=== PATIENT | male | born 1965 | race Caucasian/White ===

== ENCOUNTER 2017-01-23 09:54 | Outpatient (CLI) | payer MEDICAID | END 2017-01-23 09:55 | disposition EMS.NT | LOC: EMS 09:54 | PROVIDERS: ATTEND Surgery | DX: R04.0 Epistaxis (principal) ==

== ENCOUNTER 2017-01-23 14:10 | Emergency (ER) | payer MEDICAID ==
[2017-01-23] MEDS ORDERED: LIDOCAINE-EPINEPH-TETRACAINE 3 ML SYRINGE TOP ONE (15:17)
[2017-01-23] MEDS ORDERED: ONDANSETRON ODT 4 MG TABLET TL STA (15:22)
[2017-01-23] MEDS ORDERED: ONDANSETRON ODT 4 MG TABLET ONE (15:24)
--- NOTE | 2017-01-23 15:44 | ED Physician Documentation ---
PD HPI HEENT - Stated complaint Stated Complaint: NOSE BLEED - Chief complaint Chief Complaint: Heent - History obtained from History obtained from: Patient - History of Present Illness Timing - onset: Enter time (0600), Today Timing - duration: Hours Timing - details: Gradual onset, Still present Location: Nose Worsens: Everything Associated symptoms: No: Fever, Congestion, Rhinorrhea Similar symptoms before: Diagnosis (septal epistaxis) Recently seen: Not recently seen - Additional information Additional information: 51 y/o male developed a nose bleed this morning after blowing his nose, and he is not able to get control of the bleeding. He is nauseated from the blood he has swallowed. Review of Systems Constitutional: denies: Fever Eyes: denies: Decreased vision Ears: denies: Ear pain Nose: reports: Epistaxis Throat: denies: Sore throat Respiratory: denies: Cough GI: reports: Nausea. denies: Vomiting PD PAST MEDICAL HISTORY - Past Medical History Past Medical History: Yes Cardiovascular: Hypertension Respiratory: None Endocrine/Autoimmune: None GI: Esophageal varices, Ulcers, Cirrhosis : None HEENT: None Psych: None Musculoskeletal: Osteoarthritis - Past Surgical History Past Surgical History: Yes General: Colonoscopy, EGD - Present Medications Home Medications: Ambulatory Orders Medication Instructions Recorded Confirmed Propranolol [Inderal] 40 mg PO BID 05/08/16 01/23/17 - Allergies Allergies/Adverse Reactions: Allergies Allergy/AdvReac Type Severity Reaction Status Date / Time Penicillins Allergy Anaphylaxis Verified 01/23/17 14:21 - Social History Does the pt smoke?: Yes Smoking Status: Current every day smoker Does the pt drink ETOH?: Yes Does the pt have substance abuse?: No - Immunizations Immunizations are current?: Yes - POLST Patient has POLST: No PD ED PE NORMAL - Vitals Vital signs reviewed: Yes (normal ) - General General: Alert and oriented X 3, No acute distress, Well developed/nourished, Other (stong odor of alcohol noted. ) - HEENT HEENT: Atraumatic, PERRL, EOMI, Other (There is bleeding from the left nares and this looks like it is coming from the anterior septum. ) - Neck Neck: Supple, no meningeal sign, No bony TTP - Respiratory Respiratory: No respiratory distress - Derm Derm: Normal color, Warm and dry, No rash - Extremities Extremities: No deformity, No edema - Neuro Neuro: No motor deficit, No sensory deficit, Normal speech - Psych Psych: Normal mood, Normal affect Results - Vitals Vitals: Vital Signs - 24 hr 01/23/17 01/23/17 14:15 17:03 Temperature 36.1 C L 36.8 C Heart Rate 72 73 Respiratory 18 18 Rate Blood Pressure 138/89 H 116/76 O2 Saturation 100 97 Oxygen O2 Source Room air PD MEDICAL DECISION MAKING - ED course Complexity details: reviewed old records, considered differential, d/w patient, d/w family ED course: 51 y/o male with acute anterior epistaxis does not respond to initial trial of AgNO3 and 2 separate rhino rockets and finally we are able to get control of the bleeding with afrin and a clamp. He was administered zofran for nausea of the swallowed blood. He continues to have some oozing and he has a known thrombocytopenia from alcohol consumption. He is given the clamp and the afrin and leaves with the clamp in place without bleeding . Departure - Departure Disposition: 01 Home, Self Care Clinical Impression: Epistaxis Condition: Stable Instructions: ED Nosebleed Follow-Up: Alma Lopes ARNP [Primary Care Provider] - Discharge Date/Time: 01/23/17 17:09
[2017-01-23] MEDS ORDERED: OXYMETAZOLINE NASAL SPRAY NAS ONE (16:17)
[2017-01-23 17:05] VITALS: BP 116/76
== END 2017-01-23 17:09 | disposition home or self-care (01) ==
LOC: ED 14:10
DX: R04.0 Epistaxis (principal); R11.0 Nausea; D69.6 Thrombocytopenia, unspecified; I10 Essential (primary) hypertension; F17.200 Nicotine dependence, unspecified, uncomplicated
CPT/HCPCS: 30903; 99283; A9270; Q0162

== ENCOUNTER 2017-04-25 08:52 | Outpatient (CLI) | payer MEDICAID | END 2017-04-25 08:53 | disposition EMS.NT | LOC: EMS 08:52 | PROVIDERS: ATTEND Surgery | DX: R58 Hemorrhage, not elsewhere classified (principal) ==

== ENCOUNTER 2017-04-25 15:47 | Outpatient (CLI) | payer MEDICAID | END 2017-04-25 15:48 | disposition critical access hospital (66) | LOC: EMS 15:47 | PROVIDERS: ATTEND Surgery | DX: R58 Hemorrhage, not elsewhere classified (principal) | CPT/HCPCS: A0425; A0429 ==

== ENCOUNTER 2017-04-25 16:24 | Emergency (ER) | payer MEDICAID ==
[2017-04-25 16:38] VITALS: BP 120/80
== END 2017-04-25 17:19 | disposition left against medical advice (07) ==
LOC: ED 16:24
DX: R58 Hemorrhage, not elsewhere classified (principal); L91.8 Other hypertrophic disorders of the skin; Z53.21 Procedure and treatment not carried out due to patient leaving prior to being seen by health care provider
CPT/HCPCS: 99281

== ENCOUNTER 2017-05-14 11:19 | Outpatient (CLI) | payer MEDICAID ==
[2017-05-14 18:23] LABS: HCT - HEMATOCRIT 34.6 % (42.0-52.0); HGB - HEMOGLOBIN 11.5 g/dL (14.0-18.0); MEAN CORPUSCULAR HEMOGLOBIN 34.6 pg (27.0-31.0); MEAN CORPUSCULAR HGB CONC 33.4 g/dL (32.0-36.0); MEAN CORPUSCULAR VOLUME 103.7 fL (80.0-94.0); MEAN PLATELET VOLUME 9.8 fL (7.4-11.4); RED BLOOD COUNT 3.34 10^6/uL (4.70-6.10); RED CELL DISTRIBUTION WIDTH 13.9 % (12.0-15.0); WHITE BLOOD COUNT 7.1 x10^3/uL (4.8-10.8)
[2017-05-14 18:38] LABS: ALBUMIN/GLOBULIN RATIO 0.8 (1.0-2.2); BILIRUBIN,TOTAL 1.5 mg/dL (0.2-1.0); CALCIUM 8.5 mg/dL (8.5-10.3); CREATININE 0.7 mg/dL (0.6-1.2); TOTAL PROTEIN 8.5 g/dL (6.7-8.2)
[2017-05-14 19:09] LABS: FOLATE 7.38 ng/mL (5.90 - >24.8)
== END 2017-05-14 11:20 | disposition home or self-care (01) ==
LOC: LAB.F 11:19
PROVIDERS: ATTEND Nurse Practitioner Family
DX: K70.30 Alcoholic cirrhosis of liver without ascites (principal); F10.20 Alcohol dependence, uncomplicated; D69.6 Thrombocytopenia, unspecified
CPT/HCPCS: 36415; 80053; 82140; 82607; 82746; 85025; 85610

== ENCOUNTER 2017-05-15 10:57 | Outpatient (CLI) | payer MEDICAID | END 2017-05-15 10:58 | disposition home or self-care (01) | LOC: LAB 10:57 | PROVIDERS: ATTEND Nurse Practitioner Family | DX: K70.30 Alcoholic cirrhosis of liver without ascites (principal) | CPT/HCPCS: 36415; 82140 ==

== ENCOUNTER 2017-05-27 09:28 | Outpatient (CLI) | payer MEDICAID ==
--- NOTE | 2017-05-27 11:42 | Ultrasound Report ---
RIGHT UPPER QUADRANT ULTRASOUND: 05/27/2017 CLINICAL INDICATION: Alcoholic cirrhosis. TECHNIQUE: Real-time scanning was performed with cash application representative static images obtained. FINDINGS: The liver measures 20 cm. Hepatic echotexture is diffusely heterogeneous. There is reversa l of flow in the portal vein, compatible with portal hypertension. The common bile duct measures 5 mm . No focal hepatic lesion is seen. The gallbladder is distended, measuring 12.7 cm in length, and the re is either an avascular mass or a large focus of adherent tumefact of sludge in the fundus of the g allbladder, measuring 2.4 x 2.2 x 1.9 cm. No wall thickening or cholelithiasis is seen. The right kid edward measures 12 cm, and appears unremarkable. No free fluid is present. IMPRESSION: CIRRHOSIS, WITH REVERSAL OF FLOW IN THE PORTAL VEIN. LARGE FOCUS OF ADHERENT TUMEFACT OF SLUDGE VERSUS MASS IN THE FUNDUS OF THE GALLBLADDER, MEASURING 2.4 CM. NO EVIDENCE OF BILIARY OBSTRU CTION. JOB #: [id number] EXT JOB #:[id number]
== END 2017-05-27 09:29 | disposition home or self-care (01) ==
LOC: DI 09:28
PROVIDERS: ATTEND Physician Assistant
DX: K70.31 Alcoholic cirrhosis of liver with ascites (principal)
CPT/HCPCS: 76705

== ENCOUNTER 2017-06-28 12:28 | Outpatient (CLI) | payer MEDICAID | END 2017-06-28 12:29 | disposition short-term general hospital (02) | LOC: EMS 12:28 | PROVIDERS: ATTEND Surgery | DX: K92.0 Hematemesis (principal); K92.1 Melena | CPT/HCPCS: A0425; A0429 ==

== ENCOUNTER 2017-07-10 07:09 | Outpatient (CLI) | payer MEDICAID ==
[2017-07-10 10:57] LABS: BASOPHILS # (AUTO) 0.1 10^3/uL (0.0-0.1); BASOPHILS % (AUTO) 1.3 %; EOSINOPHILS # (AUTO) 0.1 10^3/uL (0.0-0.7); EOSINOPHILS % (AUTO) 0.9 %; HCT - HEMATOCRIT 28.4 % (42.0-52.0); HGB - HEMOGLOBIN 9.6 g/dL (14.0-18.0); LYMPHOCYTES # (AUTO) 1.9 10^3/uL (1.5-3.5); LYMPHOCYTES % (AUTO) 19.6 %; MEAN CORPUSCULAR HEMOGLOBIN 34.1 pg (27.0-31.0); MEAN CORPUSCULAR VOLUME 100.3 fL (80.0-94.0); MEAN PLATELET VOLUME 11.5 fL (7.4-11.4); MONOCYTES # (AUTO) 1.1 10^3/uL (0.0-1.0); MONOCYTES % (AUTO) 11.3 %; NEUTROPHILS # (AUTO) 6.3 10^3/uL (1.5-6.6); NEUTROPHILS % (AUTO) 66.9 %; NUCLEATED RED BLOOD CELLS AUTO 0.1 /100WBC; RED BLOOD COUNT 2.83 10^6/uL (4.70-6.10); RED CELL DISTRIBUTION WIDTH 16.6 % (12.0-15.0); UNCORRECTED WHITE BLOOD COUNT 9.5 x10^3/uL; WHITE BLOOD COUNT 9.5 x10^3/uL (4.8-10.8)
[2017-07-10 11:03] LABS: INR 1.6 (0.8-1.2)
[2017-07-10 11:04] LABS: ALBUMIN/GLOBULIN RATIO 0.7 (1.0-2.2); BILIRUBIN,TOTAL 3.5 mg/dL (0.2-1.0); CALCIUM 8.4 mg/dL (8.5-10.3); CREATININE 0.8 mg/dL (0.6-1.2); MAGNESIUM 1.2 mg/dL (1.7-2.8); POTASSIUM 3.7 mmol/L (3.5-5.0); TOTAL PROTEIN 7.4 g/dL (6.7-8.2)
== END 2017-07-10 07:10 | disposition home or self-care (01) ==
LOC: LAB.F 07:09
PROVIDERS: ATTEND Nurse Practitioner Family
DX: K70.30 Alcoholic cirrhosis of liver without ascites (principal); E87.6 Hypokalemia; E83.42 Hypomagnesemia; K92.2 Gastrointestinal hemorrhage, unspecified; D69.6 Thrombocytopenia, unspecified
CPT/HCPCS: 36415; 80053; 83735; 85025; 85610

== ENCOUNTER 2017-08-31 09:10 | Outpatient (CLI) | payer MEDICAID | END 2017-08-31 09:11 | disposition home or self-care (01) | LOC: DI 09:10 | PROVIDERS: ATTEND Internal Medicine | DX: Z53.9 Procedure and treatment not carried out, unspecified reason (principal) ==

== ENCOUNTER 2017-09-12 09:44 | Outpatient (CLI) | payer MEDICAID ==
[2017-09-12] MEDS ORDERED: GADOBUTROL 10 MMOL/10 ML VIAL ONE (10:07)
[2017-09-12] MEDS ORDERED: GADOBUTROL 10 MMOL/10 ML VIAL IVP ONE (11:29)
--- NOTE | 2017-09-12 16:45 | MRI Report ---
EXAM: MR ABDOMEN WITH AND WITHOUT CONTRAST (MR LIVER) EXAM DATE: 09/12/2017 11:50 AM. CLINICAL HISTORY: GALLBLADDER MASS. COMPARISON: None. TECHNIQUE: Multiplanar breath-hold T1, T2, and DWI sequences obtained through the abdomen on an [facility] fariha. Images obtained before and after administration of 9 mL Gadavist intravenous contrast. Multiph ase postcontrast images obtained of the liver and abdomen. FINDINGS: Lung Bases: Unremarkable. Liver: Diffuse fatty liver infiltration. No suspicious liver mass. Mildly nodular liver contour. Gallbladder: Distended gallbladder. No evidence for wall thickening, mass or stone. Patient motion ar tifact. Normal 6 mm CBD. No choledocholithiasis. Pancreas: The pancreas appears normal with no mass or ductal dilatation. Normal 2 mm pancreatic duct. Spleen: Moderately enlarged spleen measuring 15 cm, 357 cc. No focal splenic lesion evident. Kidneys and Adrenals: The kidneys appear normal with no mass or hydronephrosis. The adrenals appear n ormal. Bowel: The small bowel and colon appear normal with no inflammation or obstruction. Trace right upper quadrant free fluid. Retroperitoneum: The retroperitoneal structures appear normal with no mass or lymphadenopathy. IMPRESSION: 1. Distended gallbladder. No MR evidence for mass. 2. Fatty liver. Nodular liver contour, possible cirrhosis. 3. Mild splenomegaly. 4. Trace right upper quadrant free fluid/ascites. If prior outside ultrasound exam becomes available, comparison may be made. [facility] Referring Provider Line: [phone] SITE ID: [id number]
== END 2017-09-12 09:45 | disposition home or self-care (01) ==
LOC: DI 09:44
PROVIDERS: ATTEND Internal Medicine
DX: K82.8 Other specified diseases of gallbladder (principal); K76.0 Fatty (change of) liver, not elsewhere classified; R16.1 Splenomegaly, not elsewhere classified
CPT/HCPCS: 74183; A9585

== ENCOUNTER 2017-11-04 22:53 | Outpatient (CLI) | payer MEDICAID | END 2017-11-04 22:54 | disposition EMS.NT | LOC: EMS 22:53 | PROVIDERS: ATTEND Surgery | DX: R58 Hemorrhage, not elsewhere classified (principal) ==

== ENCOUNTER 2018-01-14 10:12 | Outpatient (CLI) | payer MEDICAID ==
--- NOTE | 2018-01-14 15:18 | XRAY Report ---
THREE VIEW RIGHT FOOT: 01/14/2018 CLINICAL INDICATION: Pain. FINDINGS: AP, lateral, oblique views of the right foot demonstrate mild osteoarthritis of the first metatarsophalangeal joint. There is no evidence of acute fracture or dislocation. No radiopaque foreign body is seen in the soft tissues. IMPRESSION: MILD OSTEOARTHRITIS OF THE FIRST METATARSOPHALANGEAL JOINT. TD: 01/14/2018 15:10
== END 2018-01-14 10:13 | disposition home or self-care (01) ==
LOC: DI.S 10:12
PROVIDERS: ATTEND Nurse Practitioner Family
DX: M79.671 Pain in right foot (principal); M19.071 Primary osteoarthritis, right ankle and foot

== ENCOUNTER 2018-02-10 09:01 | Outpatient (CLI) | END 2018-02-10 09:02 | disposition home or self-care (01) | CPT/HCPCS: 73720; A9585 ==

== ENCOUNTER 2018-05-20 07:03 | Outpatient (CLI) | payer MEDICAID ==
[2018-05-20 11:09] LABS: BASOPHILS # (AUTO) 0.1 10^3/uL (0.0-0.1); BASOPHILS % (AUTO) 1.4 %; EOSINOPHILS # (AUTO) 0.1 10^3/uL (0.0-0.7); EOSINOPHILS % (AUTO) 1.6 %; HGB - HEMOGLOBIN 11.8 g/dL (14.0-18.0); LYMPHOCYTES # (AUTO) 1.7 10^3/uL (1.5-3.5); LYMPHOCYTES % (AUTO) 21.7 %; MEAN CORPUSCULAR HEMOGLOBIN 35.7 pg (27.0-31.0); MEAN CORPUSCULAR VOLUME 101.9 fL (80.0-94.0); MEAN PLATELET VOLUME 11.4 fL (7.4-11.4); MONOCYTES # (AUTO) 1.1 10^3/uL (0.0-1.0); MONOCYTES % (AUTO) 14.3 %; NEUTROPHILS # (AUTO) 4.8 10^3/uL (1.5-6.6); PLT - PLATELET COUNT 85 10^3/uL (130-450); RED BLOOD COUNT 3.29 10^6/uL (4.70-6.10); RED CELL DISTRIBUTION WIDTH 14.8 % (12.0-15.0); WHITE BLOOD COUNT 7.8 x10^3/uL (4.8-10.8)
[2018-05-20 11:55] LABS: PLATELET ESTIMATE, MANUAL DECREASED (<130,000) (NORMAL); PLATELET MORPHOLOGY RARE GIANT PLATELETS (NORMAL)
[2018-05-20 11:56] LABS: DIFFERENTIAL COMMENT MANUAL=AUTO DIFF
[2018-05-20 12:38] LABS: ALBUMIN 3.6 g/dL (3.2-5.5); ALBUMIN/GLOBULIN RATIO 0.8 (1.0-2.2); BILIRUBIN,TOTAL 2.9 mg/dL (0.2-1.0); CALCIUM 8.8 mg/dL (8.5-10.3); CREATININE 0.9 mg/dL (0.6-1.2); TOTAL PROTEIN 8.2 g/dL (6.7-8.2)
== END 2018-05-20 07:04 | disposition home or self-care (01) ==
LOC: LAB.F 07:03
PROVIDERS: ATTEND Nurse Practitioner Family
DX: K70.30 Alcoholic cirrhosis of liver without ascites (principal); D69.6 Thrombocytopenia, unspecified; E80.6 Other disorders of bilirubin metabolism; F10.10 Alcohol abuse, uncomplicated
CPT/HCPCS: 36415; 80053; 85025; 85610

== ENCOUNTER 2018-10-16 01:40 | Outpatient (CLI) | payer MEDICAID | END 2018-10-16 01:41 | disposition critical access hospital (66) | LOC: EMS 01:40 | PROVIDERS: ATTEND Surgery | DX: R04.0 Epistaxis (principal) ==

== ENCOUNTER 2018-10-16 02:15 | Emergency (ER) | payer MEDICAID ==
--- NOTE | 2018-10-16 03:32 | ED Physician Documentation ---
PD HPI HEENT - Stated complaint Stated Complaint: NOSE BLEED - Chief complaint Chief Complaint: Heent - History obtained from History obtained from: Patient - History of Present Illness Timing - onset: How many days ago (4-5) Timing - duration: Days Timing - details: Gradual onset, Waxing and waning Pain level max: 0 Pain level now: 0 Location: Nose Improves: Nothing Worsens: Other (no exacerbating factors) Associated symptoms: No: Fever, Congestion, Rhinorrhea, Headache, Cough Similar symptoms before: Other (T+R from this ED 2 years ago for same problem) Recently seen: Not recently seen - Additional information Additional information: c/o atraumatic epistaxis; initially just right nare but now both nares. BIBA Review of Systems Constitutional: denies: Fever Nose: reports: Epistaxis. denies: Rhinorrhea / runny nose, Congestion, Sinus p ressure / pain Throat: denies: Sore throat GI: denies: Vomiting, Hematemesis Endocrine: denies: Easy bruising / bleeding PD PAST MEDICAL HISTORY - Past Medical History Past Medical History: Yes Cardiovascular: Hypertension Respiratory: None Endocrine/Autoimmune: None GI: Esophageal varices, Ulcers, Cirrhosis : None HEENT: None Psych: None Musculoskeletal: Osteoarthritis Other Past Medical History: TBI - Past Surgical History Past Surgical History: Yes General: Colonoscopy, EGD - Present Medications Home Medications: Ambulatory Orders Medication Instructions Recorded Confirmed Propranolol [Inderal] 40 mg PO BID 05/08/16 04/25/17 Cyclobenzaprine [Flexeril] 10 mg PO 10/16/18 hydrOXYzine PAMOATE [Vistaril] 25 mg PO 10/16/18 - Allergies Allergies/Adverse Reactions: Allergies Allergy/AdvReac Type Severity Reaction Status Date / Time Penicillins Allergy Anaphylaxis Verified 10/16/18 02:28 - Social History Does the pt smoke?: Yes Smoking Status: Current every day smoker Does the pt drink ETOH?: Yes Does the pt have substance abuse?: No - Immunizations Immunizations are current?: Yes - POLST Patient has POLST: No PD ED PE NORMAL - Vitals Vital signs reviewed: Yes - General General: Alert and oriented X 3, No acute distress, Well developed/nourished, Other (strong odor s/o alcohol on breath) - HEENT HEENT: Moist mucous membranes, Pharynx benign PD ED PE EXPANDED - HEENT HEENT: Other (scant dried, crusted blood right nare on anterior septum. there is larger amount of dried, clotted blood left nare on anterior septum. no active bleeding either nare) Results - Vitals Vitals: Vital Signs - 24 hr 10/16/18 10/16/18 02:15 06:14 Temperature 36.1 C L 36.4 C L Heart Rate 68 80 Respiratory 17 18 Rate Blood Pressure 141/68 H 133/106 H O2 Saturation 97 97 Oxygen O2 Source Room air Procedures - Epistaxis Site: Left, Anterior Preparation: Lidocaine Treatment: Silver Nitrate (unsuccessful), Anterior rhinorocket (good hemostasis) Other: Observed - no bleeding, Pt tolerated well PD MEDICAL DECISION MAKING - ED course Complexity details: reviewed old records, re-evaluated patient, considered differential, d/w patient Departure - Departure Disposition: 01 Home, Self Care Clinical Impression: Epistaxis Condition: Good Instructions: ED Nosebleed Follow-Up: Chaya Morales ARNP [Primary Care Provider] - Comments: Follow up with your doctor within 2-3 days for removal of the packing. Discharge Date/Time: 10/16/18 07:57
[2018-10-16] MEDS ORDERED: OXYMETAZOLINE NASAL SPRAY NAS STA (03:53)
[2018-10-16] MEDS ORDERED: LIDOCAINE VISCOUS 2% 15 ML UDC MM STA (03:53)
[2018-10-16] MEDS ORDERED: diazePAM 5 MG TABLET PO STA (06:05)
[2018-10-16] MEDS ORDERED: PROPRANOLOL 10 MG TABLET PO STA (06:05)
[2018-10-16 06:17] VITALS: BP 133/106
== END 2018-10-16 07:57 | disposition home or self-care (01) ==
LOC: ED 02:15
DX: R04.0 Epistaxis (principal); I10 Essential (primary) hypertension; F17.200 Nicotine dependence, unspecified, uncomplicated; Z87.820 Personal history of traumatic brain injury
CPT/HCPCS: 30901; 99282; 99283; A9270

== ENCOUNTER 2018-10-22 10:27 | Emergency (ER) | payer MEDICAID ==
[2018-10-22 11:25] LABS: BASOPHILS # (AUTO) 0.1 10^3/uL (0.0-0.1); BASOPHILS % (AUTO) 1.2 %; EOSINOPHILS # (AUTO) 0.1 10^3/uL (0.0-0.7); EOSINOPHILS % (AUTO) 0.9 %; HGB - HEMOGLOBIN 10.7 g/dL (14.0-18.0); LYMPHOCYTES # (AUTO) 1.7 10^3/uL (1.5-3.5); LYMPHOCYTES % (AUTO) 22.1 %; MEAN CORPUSCULAR HEMOGLOBIN 35.3 pg (27.0-31.0); MEAN CORPUSCULAR HGB CONC 34.5 g/dL (32.0-36.0); MEAN CORPUSCULAR VOLUME 102.3 fL (80.0-94.0); MONOCYTES # (AUTO) 1.2 10^3/uL (0.0-1.0); MONOCYTES % (AUTO) 15.4 %; NEUTROPHILS # (AUTO) 4.5 10^3/uL (1.5-6.6); NEUTROPHILS % (AUTO) 60.4 %; PLT - PLATELET COUNT 46 10^3/uL (130-450); RED BLOOD COUNT 3.05 10^6/uL (4.70-6.10); RED CELL DISTRIBUTION WIDTH 14.8 % (12.0-15.0); WHITE BLOOD COUNT 7.5 x10^3/uL (4.8-10.8)
[2018-10-22 11:38] LABS: ALBUMIN 3.6 g/dL (3.2-5.5); ALBUMIN/GLOBULIN RATIO 0.8 (1.0-2.2); BILIRUBIN,TOTAL 3.1 mg/dL (0.2-1.0); CALCIUM 8.6 mg/dL (8.5-10.3); CREATININE 1.6 mg/dL (0.6-1.2); TOTAL PROTEIN 8.3 g/dL (6.7-8.2)
--- NOTE | 2018-10-22 12:51 | CT Report ---
Reason: dizzy, blurred vision which has resolved Procedure Date: 10/22/2018 Accession Number: [id number] / [id number] Procedure: CT - HEAD WO CPT Code: FULL RESULT: EXAM: CT HEAD EXAM DATE: 10/22/2018 12:29 PM. CLINICAL HISTORY: Dizzy, blurred vision which has resolved. COMPARISON: None. TECHNIQUE: Multiaxial CT images were obtained from the foramen magnum to the vertex. Reformats: Sagittal and coronal. IV contrast: None. In accordance with CT protocol optimization, one or more of the following dose reduction techniques were utilized for this exam: automated exposure control, adjustment of mA and/or KV based on patient size, or use of iterative reconstructive technique. FINDINGS: Parenchyma: No intraparenchymal hemorrhage. No evidence of mass, midline shift. Reid-white differentiation is distinct. Extraaxial Spaces: In the left posterior fossa is a 2.3 x 2.1 cm CSF density space possibly arachnoid cyst. No subdural or epidural collections identified. Ventricles: Normal in size and position. Sinuses and Orbits: Imaged paranasal sinuses, orbits, and mastoids show no significant abnormality. Bones: No evidence of fracture or calvarial defect. Other: None. IMPRESSION: No acute intracranial abnormality is detected. CSF density space in the posterior fossa is felt to be a chronic finding. [facility]
[2018-10-22 13:01] LABS: BILIRUBIN,URINE NEGATIVE (NEGATIVE); GLUCOSE, URINE (UA) NEGATIVE (NEGATIVE); KETONES,URINE (UA) TRACE mg/dL (NEGATIVE); LEUKOCYTE ESTERASE, URINE NEGATIVE (NEGATIVE); NITRITE,URINE NEGATIVE (NEGATIVE); OCCULT BLOOD,URINE NEGATIVE (NEGATIVE); PROTEIN,URINE NEGATIVE (NEGATIVE); UROBILINOGEN,URINE 1 (NORMAL) E.U./dL (NORMAL)
[2018-10-22 13:06] LABS: CLARITY,URINE CLEAR (CLEAR)
--- NOTE | 2018-10-22 13:41 | ED Physician Documentation ---
History of Present Illness - Stated complaint Stated Complaint: VISION CHANGES/SWEATING - Chief complaint Chief Complaint: General - Additonal information Additional information: 53-year-old male presents the emergency department with an episode of dizziness and blurred vision. The patient was a passenger in a car when he became lightheaded and his vision was blurry bilaterally. The episode was brief and resolved spontaneously. The patient denied headache, focal motor weakness, vision loss, facial abnormality, speech changes, confusion, headache or neck pain. Presently, the patient reports being at his baseline. The patient denies any ocular pain, floaters, flashing of light or unilateral vision changes. The patient denies chest pain, shortness of breath, abdominal pain. No specific triggering symptoms. No other associated symptoms. Review of Systems Constitutional: denies: Fever, Fatigue Eyes: denies: Loss of vision, Decreased vision, Photophobia, Discharge, Irritation Ears: denies: Ear pain Nose: denies: Congestion Throat: denies: Sore throat Cardiac: denies: Chest pain / pressure Respiratory: denies: Dyspnea GI: denies: Abdominal Pain : denies: Dysuria Skin: denies: Rash Neurologic: denies: Generalized weakness, Focal weakness, Numbness, Difficulty speaking, Near syncope, Syncope, Seizure, Altered mental status PD PAST MEDICAL HISTORY - Past Medical History Cardiovascular: Hypertension Respiratory: None Endocrine/Autoimmune: None GI: Esophageal varices, Ulcers, Cirrhosis : None HEENT: None Psych: None Musculoskeletal: Osteoarthritis - Past Surgical History Past Surgical History: Yes General: Colonoscopy, EGD - Present Medications Home Medications: Ambulatory Orders Medication Instructions Recorded Confirmed Propranolol [Inderal] 40 mg PO BID 05/08/16 04/25/17 Cyclobenzaprine [Flexeril] 10 mg PO 10/16/18 hydrOXYzine PAMOATE [Vistaril] 25 mg PO 10/16/18 - Allergies Allergies/Adverse Reactions: Allergies Allergy/AdvReac Type Severity Reaction Status Date / Time Penicillins Allergy Anaphylaxis Verified 10/16/18 02:28 - Social History Does the pt smoke?: Yes Smoking Status: Current every day smoker Does the pt drink ETOH?: Yes Does the pt have substance abuse?: No - Immunizations Immunizations are current?: Yes - POLST Patient has POLST: No PD ED PE NORMAL - General General: Alert and oriented X 3, No acute distress - HEENT HEENT: Atraumatic, PERRL, EOMI, Ears normal, Pharynx benign - Cardiac Cardiac: RRR, Strong equal pulses - Respiratory Respiratory: No respiratory distress - Abdomen Abdomen: Soft, Non tender - Derm Derm: Normal color - Extremities Extremities: No deformity, Normal ROM s pain, No edema - Neuro Neuro: Alert and oriented X 3, 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, No motor deficit, No sensory deficit, Normal speech, Other (normal gait) - Psych Psych: Normal mood Results - Vitals Vitals: Vital Signs - 24 hr 10/22/18 10/22/18 10/22/18 10:33 10:55 12:25 Temperature 35.6 C L Heart Rate 62 69 84 Respiratory 14 18 18 Rate Blood Pressure 96/44 L 105/60 122/84 H O2 Saturation 97 99 97 Oxygen O2 Source Room air - EKG (time done) 11:21 Rate: Rate (enter#) Rhythm: NSR Intervals: Normal DE, QRS normal QRS: Normal Ischemia: Normal ST segments - Labs Labs: Laboratory Tests 10/22/18 10/22/18 10/22/18 11:16 11:16 11:16 WBC 7.5 RBC 3.05 L Hgb 10.7 L Hct 31.2 L MCV 102.3 H MCH 35.3 H MCHC 34.5 RDW 14.8 Plt Count 46 L MPV 10.0 Neut # (Auto) 4.5 Lymph # (Auto) 1.7 Gilchrist # (Auto) 1.2 H Eos # (Auto) 0.1 Baso # (Auto) 0.1 Absolute Nucleated RBC 0.02 Nucleated RBC % 0.3 Sodium 132 L Potassium 3.8 Chloride 97 L Carbon Dioxide 22 Anion Gap 13.0 BUN 19 Creatinine 1.6 H Estimated GFR (MDRD) 45 L Glucose 155 H Calcium 8.6 Total Bilirubin 3.1 H AST 92 H ALT 33 Alkaline Phosphatase 111 Troponin I < 0.04 Total Protein 8.3 H Albumin 3.6 Globulin 4.7 H Albumin/Globulin Ratio 0.8 L Lipase 69 H Urine Color Urine Clarity Urine pH Ur Specific Honor Urine Protein Urine Glucose (UA) Urine Ketones Urine Occult Blood Urine Nitrite Urine Bilirubin Urine Urobilinogen Ur Leukocyte Esterase Ur Microscopic Review Urine Culture Comments 10/22/18 12:24 WBC RBC Hgb Hct MCV MCH MCHC RDW Plt Count MPV Neut # (Auto) Lymph # (Auto) Gilchrist # (Auto) Eos # (Auto) Baso # (Auto) Absolute Nucleated RBC Nucleated RBC % Sodium Potassium Chloride Carbon Dioxide Anion Gap BUN Creatinine Estimated GFR (MDRD) Glucose Calcium Total Bilirubin AST ALT Alkaline Phosphatase Troponin I Total Protein Albumin Globulin Albumin/Globulin Ratio Lipase Urine Color YELLOW Urine Clarity CLEAR Urine pH 6.0 Ur Specific Honor <=1.005 Urine Protein NEGATIVE Urine Glucose (UA) NEGATIVE Urine Ketones TRACE Urine Occult Blood NEGATIVE Urine Nitrite NEGATIVE Urine Bilirubin NEGATIVE Urine Urobilinogen 1 (NORMAL) Ur Leukocyte Esterase NEGATIVE Ur Microscopic Review NOT INDICATED Urine Culture Comments NOT INDICATED - Rads (name of study) CT head Radiology: Final report received, See rad report (IMPRESSION: No acute intracranial abnormality is detected. CSF density space in the posterior fossa is felt to be a chronic finding. ) PD MEDICAL DECISION MAKING - ED course ED course: The patient's episode was brief and the patient currently is at his baseline. The patient's workup does not reveal a clear source for his symptoms. The patient's workup does reveal several nonacute abnormalities, presently the patient appears appropriate for discharge and further workup and evaluation as an outpatient. I discussed with the patient the findings and advised further evaluation with primary care. The patient understands and agrees. I discussed warning signs and recommended returning to the emergency department for any worsening or any concerns Departure - Departure Disposition: 01 Home, Self Care Clinical Impression: Dizziness, Blurry vision, Abnormal CT scan, head, Renal insufficiency Anemia Qualifiers: Anemia type: unspecified type Qualified Code(s): D64.9 - Anemia, unspecified Condition: Good Instructions: ED Blurred Vision, ED Dizziness [facility] Comments: Please follow-up with your primary care physician this coming week for recheck. Please ask your primary care to order an outpatient MRI of your brain to further assess the abnormality seen on CT scan. Please ask your primary care to follow your low hemoglobin/anemia and your kidney function. Please return to the emergency department for any worsening or any concerns Forms: Activity restrictions
[2018-10-22 14:15] VITALS: BP 122/78
== END 2018-10-22 14:14 | disposition home or self-care (01) ==
LOC: ED 10:27
DX: R42 Dizziness and giddiness (principal); H53.8 Other visual disturbances; I45.81 Long QT syndrome; N28.9 Disorder of kidney and ureter, unspecified; D64.9 Anemia, unspecified; I10 Essential (primary) hypertension; F17.200 Nicotine dependence, unspecified, uncomplicated
CPT/HCPCS: 36415; 70450; 80053; 81001; 81003; 83690; 84484; 85025; 87086; 93005; 99283; 99284

== ENCOUNTER 2018-11-06 08:00 | Outpatient (CLI) | payer MEDICAID | END 2018-11-06 08:01 | disposition home or self-care (01) | LOC: LAB.R 08:00 | PROVIDERS: ATTEND Nurse Practitioner | DX: J02.9 Acute pharyngitis, unspecified (principal) | CPT/HCPCS: 87070 ==

== ENCOUNTER 2018-11-06 11:16 | Outpatient (CLI) | payer MEDICAID ==
[2018-11-06 17:53] LABS: INR 1.2 (0.8-1.2); PT - PROTHROMBIN TIME 13.9 secs (9.9-12.6)
[2018-11-06 17:59] LABS: ALBUMIN 3.6 g/dL (3.2-5.5); ALBUMIN/GLOBULIN RATIO 0.7 (1.0-2.2); BILIRUBIN,TOTAL 2.2 mg/dL (0.2-1.0); CALCIUM 8.5 mg/dL (8.5-10.3); CREATININE 0.9 mg/dL (0.6-1.2); TOTAL PROTEIN 8.5 g/dL (6.7-8.2)
[2018-11-06 18:12] LABS: BASOPHILS # (AUTO) 0.1 10^3/uL (0.0-0.1); BASOPHILS % (AUTO) 0.9 %; EOSINOPHILS # (AUTO) 0.1 10^3/uL (0.0-0.7); EOSINOPHILS % (AUTO) 1.5 %; HGB - HEMOGLOBIN 11.3 g/dL (14.0-18.0); LYMPHOCYTES % (AUTO) 30.2 %; MEAN CORPUSCULAR HEMOGLOBIN 34.5 pg (27.0-31.0); MEAN CORPUSCULAR HGB CONC 33.8 g/dL (32.0-36.0); MEAN CORPUSCULAR VOLUME 102.1 fL (80.0-94.0); MEAN PLATELET VOLUME 10.1 fL (7.4-11.4); MONOCYTES # (AUTO) 0.5 10^3/uL (0.0-1.0); MONOCYTES % (AUTO) 8.1 %; NEUTROPHILS # (AUTO) 3.9 10^3/uL (1.5-6.6); NEUTROPHILS % (AUTO) 59.3 %; RED BLOOD COUNT 3.28 10^6/uL (4.70-6.10); RED CELL DISTRIBUTION WIDTH 14.4 % (12.0-15.0); WHITE BLOOD COUNT 6.6 x10^3/uL (4.8-10.8)
[2018-11-06 18:47] LABS: PLT - PLATELET COUNT 29 10^3/uL (130-450)
== END 2018-11-06 11:17 | disposition home or self-care (01) ==
LOC: LAB.F 11:16
PROVIDERS: ATTEND Nurse Practitioner
DX: K76.6 Portal hypertension (principal); K31.89 Other diseases of stomach and duodenum; R04.0 Epistaxis; K70.30 Alcoholic cirrhosis of liver without ascites; D69.6 Thrombocytopenia, unspecified; F10.10 Alcohol abuse, uncomplicated
CPT/HCPCS: 36415; 80053; 80307; 80320; 81599; 85025; 85610

== ENCOUNTER 2018-11-06 20:43 | Outpatient (CLI) | payer MEDICAID | END 2018-11-06 20:44 | disposition critical access hospital (66) | LOC: EMS 20:43 | PROVIDERS: ATTEND Surgery | DX: D69.6 Thrombocytopenia, unspecified (principal); R53.1 Weakness | CPT/HCPCS: A0425; A0429 ==

== ENCOUNTER 2018-11-06 21:22 | Emergency (ER) | payer MEDICAID ==
[2018-11-06 21:42] VITALS: BP 135/86
--- NOTE | 2018-11-06 21:49 | ED Physician Documentation ---
History of Present Illness - Stated complaint Stated Complaint: LOW PLATELET COUNT/REF BY PCP - Chief complaint Chief Complaint: General - History obtained from History obtained from: Patient, EMS - History of Present Illness Timing: Today Pain level max: 0 Pain level now: 0 - Additonal information Additional information: 53-year-old alcoholic male with a history of alcoholic cirrhosis and thrombocytopenia was sent by his PCP garrett for thrombocytopenia. He states he had a nosebleed 10 days ago. No bleeding since. Denies any dark tarry stools. Denies any vomiting. Denies any vomiting blood. Denies any bright red blood in the stool. Nothing makes it better or worse. Asymptomatic Review of Systems Ten Systems: 10 systems reviewed and negative Constitutional: denies: Fever, Chills Cardiac: denies: Chest pain / pressure Respiratory: denies: Dyspnea, Cough GI: denies: Abdominal Pain, Vomiting, Diarrhea, Hematemesis, Bloody / black stool : denies: Unable to Void, Incontinent Musculoskeletal: reports: Back pain (Patient states he has several year history of back pain. Not worse than usual.) Neurologic: denies: Focal weakness, Numbness, Confused, Altered mental status PD PAST MEDICAL HISTORY - Past Medical History Past Medical History: Yes Cardiovascular: Hypertension Respiratory: None Neuro: Head injury, Other Endocrine/Autoimmune: None GI: Esophageal varices, Ulcers, Cirrhosis : None HEENT: None Psych: None Musculoskeletal: Osteoarthritis Other Past Medical History: Brain Tumor - Past Surgical History Past Surgical History: Yes General: Colonoscopy, EGD - Present Medications Home Medications: Ambulatory Orders Medication Instructions Recorded Confirmed Propranolol [Inderal] 40 mg PO BID 05/08/16 04/25/17 Cyclobenzaprine [Flexeril] 10 mg PO 10/16/18 hydrOXYzine PAMOATE [Vistaril] 25 mg PO 10/16/18 - Allergies Allergies/Adverse Reactions: Allergies Allergy/AdvReac Type Severity Reaction Status Date / Time Penicillins Allergy Anaphylaxis Verified 11/06/18 21:42 - Social History Does the pt smoke?: Yes Smoking Status: Current every day smoker Does the pt drink ETOH?: Yes Does the pt have substance abuse?: No - Immunizations Immunizations are current?: Yes - POLST Patient has POLST: No PD ED PE NORMAL - Vitals Vital signs reviewed: Yes - General General: Alert and oriented X 3, No acute distress - HEENT HEENT: PERRL, Moist mucous membranes - Neck Neck: Supple, no meningeal sign - Cardiac Cardiac: RRR, Strong equal pulses - Respiratory Respiratory: No respiratory distress, Clear bilaterally - Abdomen Abdomen: Soft, Non tender, Non distended - Rectal Rectal: Other (pt refuses) - Back Back: No spinal TTP - Derm Derm: Warm and dry, No rash - Extremities Extremities: No calf tenderness / cord - Neuro Neuro: Alert and oriented X 3 Results - Vitals Vitals: Vital Signs - 24 hr 11/06/18 21:15 Temperature 36.9 C Heart Rate 74 Respiratory 18 Rate Blood Pressure 135/86 H O2 Saturation 94 Oxygen O2 Source Room air PD MEDICAL DECISION MAKING - ED course Complexity details: reviewed results, re-evaluated patient, considered differential, d/w patient, d/w PMD ED course: 53-year-old male presents to the emergency department with thrombocytopenia on outpatient lab draw. Platelets were 29,000. He has no procedures planned. Is not actively bleeding anywhere. Discussed the case with the PCP on-call for his provider. We will have him follow-up in clinic for further evaluation. The person superintendent sanitation states that he told them he was having dark tarry stools. Patient again denies this to me and refuses a rectal exam. Patient wishes to go home at this time. Patient counseled regarding signs and symptoms for which I believe and urgent re-evaluation would be necessary. Patient with good understanding of and agreement to plan and is comfortable going home at this time This document was made in part using voice recognition software. While efforts are made to proofread this document, sound alike and grammatical errors may occur. Hemoglobin is also stable from prior Departure - Departure Disposition: 01 Home, Self Care Clinical Impression: Thrombocytopenia Condition: Good Instructions: Thrombocytopenia Follow-Up: Yeni Wade DNP [Primary Care Provider] - Within 1 week Comments: your low platelets do not require any intervention at this time. You should be followed by a liver specialist for your cirrhosis and you need to stop drinking alcohol. Return if you fall or start bleeding. Discharge Date/Time: 11/06/18 22:10
== END 2018-11-06 22:10 | disposition home or self-care (01) ==
LOC: EDUNIT# → ED 21:22
DX: D69.6 Thrombocytopenia, unspecified (principal); I10 Essential (primary) hypertension; K70.30 Alcoholic cirrhosis of liver without ascites; F10.20 Alcohol dependence, uncomplicated; F17.200 Nicotine dependence, unspecified, uncomplicated; J02.9 Acute pharyngitis, unspecified; K76.6 Portal hypertension; K31.89 Other diseases of stomach and duodenum; R04.0 Epistaxis
CPT/HCPCS: 36415; 80053; 80307; 80320; 85025; 85610; 87070; 99282; 99283

== ENCOUNTER 2018-12-04 11:29 | Emergency (ER) | payer MEDICAID ==
[2018-12-04 11:42] VITALS: BP 139/86
--- NOTE | 2018-12-04 12:10 | ED Physician Documentation ---
PD HPI URI - Stated complaint Stated Complaint: RIGHT EAR PAIN - Chief complaint Chief Complaint: Heent - History obtained from History obtained from: Patient - History of Present Illness Timing - onset: How many days ago (2-3 days of right ear pain and then drainage. He states the pain is all around the right side of the head. He has had some nasal congestion and a slight sore throat. He has diminished hearing on both ears at baseline with the right ear being not quite as bad. He has more diminished hearing on that side now as well.) Timing details: Abrupt onset Associated symptoms: Ear pain, Nasal congestion. No: Fever, Dry cough, Productive cough Contributing factors: No: Sick contact, Immunocompromised Recently seen: Not recently seen Review of Systems Constitutional: denies: Fever, Chills Ears: reports: Ear pain, Drainage/discharge Nose: reports: Congestion. denies: Rhinorrhea / runny nose Respiratory: denies: Dyspnea, Cough GI: denies: Nausea, Vomiting PD PAST MEDICAL HISTORY - Past Medical History Cardiovascular: Hypertension Respiratory: None Neuro: Head injury, Other Endocrine/Autoimmune: None GI: Esophageal varices, Ulcers, Cirrhosis : None HEENT: None Psych: None Musculoskeletal: Osteoarthritis - Past Surgical History Past Surgical History: Yes General: Colonoscopy, EGD - Present Medications Home Medications: Ambulatory Orders Medication Instructions Recorded Confirmed Propranolol [Inderal] 40 mg PO BID 05/08/16 04/25/17 Cyclobenzaprine [Flexeril] 10 mg PO 10/16/18 hydrOXYzine PAMOATE [Vistaril] 25 mg PO 10/16/18 RX: Doxycycline Hyclate 100 mg PO BID #20 capsule 12/04/18 RX: Tramadol HCl 50 mg PO Q6H PRN #15 tablet 12/04/18 - Allergies Allergies/Adverse Reactions: Allergies Allergy/AdvReac Type Severity Reaction Status Date / Time Penicillins Allergy Anaphylaxis Verified 12/04/18 11:42 - Social History Does the pt smoke?: Yes Smoking Status: Current every day smoker Does the pt drink ETOH?: Yes Does the pt have substance abuse?: No - Immunizations Immunizations are current?: Yes - POLST Patient has POLST: No PD ED PE NORMAL - Vitals Vital signs reviewed: Yes - General General: Alert and oriented X 3, Well developed/nourished - HEENT HEENT: Pharynx benign. No: Ears normal (left is okay; right with redness and swelling around the TM, with small perforation at 3 o'clock position and purulence from behind. The canal itself does not look infected. ) - Neck Neck: Supple, no meningeal sign, Other (mild anterior adenopathy) - Cardiac Cardiac: RRR, No murmur - Respiratory Respiratory: Clear bilaterally - Derm Derm: Normal color, Warm and dry - Neuro Neuro: Alert and oriented X 3, No motor deficit, Normal speech Results - Vitals Vitals: Oxygen O2 Source Room air PD MEDICAL DECISION MAKING - ED course Complexity details: reviewed results, considered differential, d/w patient Departure - Departure Disposition: 01 Home, Self Care Clinical Impression: Otitis media Qualifiers: Otitis media type: suppurative Chronicity: acute Laterality: right Recurrence: non-recurrent Spontaneous tympanic membrane rupture: with spontaneous rupture Qualified Code(s): H66.011 - Acute suppurative otitis media with spontaneous rupture of ear drum, right ear Condition: Stable Record reviewed to determine appropriate education?: Yes Instructions: ED Otitis Media Acute Adult Follow-Up: Yeni Wade DNP [Primary Care Provider] - Prescriptions: RX: Doxycycline Hyclate 100 mg PO BID #20 capsule RX: Tramadol HCl 50 mg PO Q6H PRN #15 tablet PRN Reason: Pain Comments: Doycycline antibiotic for the infection. Tylenol 650 mg 4 times daily for the next 4-5 days, and add Tramadol as needed for pains. Try to avoid medications in the ear. Gentle cleansing with water can be okay. The eardrum should heal up over several weeks after the infection is clear. Follow-up with your primary care if you hearing is not back to baseline over 2-3 weeks. Discharge Date/Time: 12/04/18 12:34
[2018-12-04] MEDS ORDERED: ACETAMINOPHEN 500 MG TABLET PO STA (12:22)
[2018-12-04] MEDS ORDERED: DOXYCYCLINE 100 MG TABLET PO STA (12:22)
[2018-12-04] MEDS ORDERED: traMADol 50 MG TABLET PO STA (12:23)
== END 2018-12-04 12:34 | disposition home or self-care (01) ==
LOC: ED 11:29
DX: H66.011 Acute suppurative otitis media with spontaneous rupture of ear drum, right ear (principal); I10 Essential (primary) hypertension; F17.200 Nicotine dependence, unspecified, uncomplicated
CPT/HCPCS: 99283

== ENCOUNTER 2019-01-31 15:15 | Outpatient (CLI) | payer MEDICAID | END 2019-01-31 15:16 | disposition short-term general hospital (02) | LOC: EMS 15:15 | PROVIDERS: ATTEND Surgery | DX: R58 Hemorrhage, not elsewhere classified (principal); R00.0 Tachycardia, unspecified; R03.1 Nonspecific low blood-pressure reading | CPT/HCPCS: A0425; A0427; A0999 ==

== ENCOUNTER 2019-04-02 11:37 | Outpatient (CLI) | payer MEDICAID | END 2019-04-02 11:38 | disposition short-term general hospital (02) | LOC: EMS 11:37 | PROVIDERS: ATTEND Surgery | DX: R50.9 Fever, unspecified (principal); R51 Headache | CPT/HCPCS: A0425; A0429; A0999 ==

== ENCOUNTER 2019-04-27 13:25 | Outpatient (CLI) | payer MEDICAID | END 2019-04-27 13:26 | disposition home or self-care (01) | LOC: LAB.S 13:25 | PROVIDERS: ATTEND Family Medicine | DX: Z53.9 Procedure and treatment not carried out, unspecified reason (principal) | CPT/HCPCS: 36415; 80053; 82607; 82728; 82746; 83540; 84439; 84443; 84466; 84481; 85025; 85044 ==

== ENCOUNTER 2019-04-28 07:20 | Outpatient (CLI) | payer MEDICAID ==
[2019-04-28 10:10] LABS: ABSOLUTE RETICS # AUTO 0.044 10^6/uL (0.020-0.110); BASOPHILS # (AUTO) 0.1 10^3/uL (0.0-0.1); BASOPHILS % (AUTO) 0.9 %; EOSINOPHILS # (AUTO) 0.2 10^3/uL (0.0-0.7); EOSINOPHILS % (AUTO) 2.8 %; HGB - HEMOGLOBIN 8.2 g/dL (14.0-18.0); LYMPHOCYTES # (AUTO) 1.6 10^3/uL (1.5-3.5); LYMPHOCYTES % (AUTO) 30.2 %; MEAN CORPUSCULAR HEMOGLOBIN 30.8 pg (27.0-31.0); MEAN CORPUSCULAR HGB CONC 33.1 g/dL (32.0-36.0); MEAN CORPUSCULAR VOLUME 93.2 fL (80.0-94.0); MEAN PLATELET VOLUME 11.8 fL (7.4-11.4); MONOCYTES # (AUTO) 0.6 10^3/uL (0.0-1.0); NEUTROPHILS # (AUTO) 2.9 10^3/uL (1.5-6.6); NEUTROPHILS % (AUTO) 54.7 %; PLT - PLATELET COUNT 77 10^3/uL (130-450); RED BLOOD COUNT 2.66 10^6/uL (4.70-6.10); RED CELL DISTRIBUTION WIDTH 17.7 % (12.0-15.0); WHITE BLOOD COUNT 5.3 x10^3/uL (4.8-10.8)
[2019-04-28 10:33] LABS: THYROID STIMULATING HORMONE 1.18 uIU/mL (0.34-5.60)
[2019-04-28 10:34] LABS: ALBUMIN 2.9 g/dL (3.2-5.5); ALBUMIN/GLOBULIN RATIO 0.6 (1.0-2.2); BILIRUBIN,TOTAL 2.3 mg/dL (0.2-1.0); CALCIUM 8.5 mg/dL (8.5-10.3); CREATININE 2.1 mg/dL (0.6-1.2); FREE T4 (FREE THYROXINE) 1.22 ng/dL (0.58-1.64); TOTAL PROTEIN 7.4 g/dL (6.7-8.2)
[2019-04-28 10:40] LABS: FERRITIN 113.5 ng/mL (23.9-336.2)
[2019-04-28 10:42] LABS: FOLATE 12.32 ng/mL (5.90 - >24.8)
== END 2019-04-28 07:21 | disposition home or self-care (01) ==
LOC: LAB.S 07:20
PROVIDERS: ATTEND Family Medicine
DX: D62 Acute posthemorrhagic anemia (principal); I81 Portal vein thrombosis; I10 Essential (primary) hypertension; K70.30 Alcoholic cirrhosis of liver without ascites; D69.6 Thrombocytopenia, unspecified
CPT/HCPCS: 36415; 80053; 82607; 82728; 82746; 83540; 84439; 84443; 84466; 84481; 85025; 85044

== ENCOUNTER 2019-05-05 11:23 | Outpatient (CLI) | payer MEDICAID ==
--- NOTE | 2019-05-07 14:26 | XRAY Report ---
Reason: BACK PAIN W/RADICULOPATHY M54.16 Procedure Date: 05/05/2019 Accession Number: [id number] / [id number] Procedure: XRS - Lumbar Spine Complete CPT Code: FULL RESULT: EXAM: LUMBOSACRAL SPINE RADIOGRAPHY EXAM DATE: 05/05/2019 11:57 AM. CLINICAL HISTORY: Low back pain radiating into left leg. COMPARISONS: None. TECHNIQUE: 5 views including obliques. FINDINGS: Alignment: Normal. No spondylolisthesis or scoliosis. Bones: Five [id number] lumbar vertebral bodies are present. No fractures or bone lesions. No pars defects. Disks: Disk space narrowing is moderate at L3-L4, advanced at L4-L5, moderate at L5-S1. Facets: No degenerative changes. Sacroiliac Joints: Unremarkable. Soft Tissues: Normal. The visualized bowel gas pattern is normal. IMPRESSION: Multilevel degenerative disk disease, worst at L4-L5. RADIA
== END 2019-05-05 11:24 | disposition home or self-care (01) ==
LOC: DI.S 11:23
PROVIDERS: ATTEND Family Medicine
DX: M51.16 Intervertebral disc disorders with radiculopathy, lumbar region (principal)
CPT/HCPCS: 72110

== ENCOUNTER 2019-05-20 05:55 | Outpatient (CLI) | payer MEDICAID | END 2019-05-20 05:56 | disposition critical access hospital (66) | LOC: EMS 05:55 | PROVIDERS: ATTEND Surgery | DX: R04.0 Epistaxis (principal) | CPT/HCPCS: A0425; A0429 ==

== ENCOUNTER 2019-05-20 06:30 | Emergency (ER) | payer MEDICAID ==
[2019-05-20 06:37] VITALS: BP 145/91
[2019-05-20] MEDS ORDERED: OXYMETAZOLINE HCL 100 SPRAYS BOTTLE NAS STA (06:39)
--- NOTE | 2019-05-20 06:41 | ED Physician Documentation ---
PD HPI HEENT - Stated complaint Stated Complaint: NOSEBLEED - Chief complaint Chief Complaint: Heent - History obtained from History obtained from: Patient, EMS - History of Present Illness Timing - onset: How many hours ago (3) Timing - duration: Hours (3) Timing - details: Abrupt onset Severity Comments: moderate Location: Nose Improves: Other (pressure) Worsens: Other (nothing) Associated symptoms: No: Fever, Congestion, Rhinorrhea, Trismus, Unable to swallow, Facial swelling, Headache, Cough Similar symptoms before: Has not had sx before Recently seen: Not recently seen - Treatment prior to arrival Treatment prior to arrival: pressure and used some afrin earlier today. States he is on eloquis but has not had nose bleeds like this before. It started when he blew his nose in the middle of the night. Review of Systems Ten Systems: 10 systems reviewed and negative Constitutional: reports: Reviewed and negative Eyes: reports: Reviewed and negative Ears: reports: Reviewed and negative Nose: reports: Epistaxis Throat: reports: Reviewed and negative Cardiac: reports: Reviewed and negative Respiratory: reports: Reviewed and negative GI: reports: Reviewed and negative Skin: reports: Reviewed and negative Neurologic: reports: Reviewed and negative. denies: Syncope, LOC PD PAST MEDICAL HISTORY - Past Medical History Past Medical History: Yes Cardiovascular: Hypertension Respiratory: None Neuro: Head injury, Other Endocrine/Autoimmune: None GI: Esophageal varices, Ulcers, Cirrhosis : None HEENT: None Psych: None Musculoskeletal: Osteoarthritis Derm: None - Past Surgical History Past Surgical History: Yes General: Colonoscopy, EGD - Present Medications Home Medications: Ambulatory Orders Medication Instructions Recorded Confirmed Propranolol [Inderal] 40 mg PO BID 05/08/16 04/25/17 Cyclobenzaprine [Flexeril] 10 mg PO 10/16/18 hydrOXYzine PAMOATE [Vistaril] 25 mg PO 10/16/18 Doxycycline Hyclate 100 mg PO BID #20 capsule 12/04/18 Tramadol HCl 50 mg PO Q6H PRN #15 tablet 12/04/18 - Allergies Allergies/Adverse Reactions: Allergies Allergy/AdvReac Type Severity Reaction Status Date / Time Penicillins Allergy Anaphylaxis Verified 05/20/19 06:37 - Social History Does the pt smoke?: Yes Smoking Status: Current every day smoker Does the pt drink ETOH?: Yes Does the pt have substance abuse?: No - Immunizations Immunizations are current?: Yes - POLST Patient has POLST: No PD ED PE NORMAL - Vitals Vital signs reviewed: Yes - General General: Alert and oriented X 3, No acute distress, Well developed/nourished - HEENT HEENT: Atraumatic, Pharynx benign - Neck Neck: Supple, no meningeal sign - Cardiac Cardiac: RRR - Respiratory Respiratory: No respiratory distress - Abdomen Abdomen: Non distended - Male Male : Deferred - Rectal Rectal: Deferred - Derm Derm: Normal color, Warm and dry, No rash - Extremities Extremities: No deformity - Neuro Neuro: Alert and oriented X 3 Eye Opening: Spontaneous Motor: Obeys Commands Verbal: Oriented GCS Score: 15 - Psych Psych: Normal mood, Normal affect Results - Vitals Vitals: Vital Signs - 24 hr 05/20/19 05/20/19 05/20/19 06:33 06:44 06:47 Temperature 36.3 C L Heart Rate 72 65 64 Respiratory 16 18 17 Rate Blood Pressure 145/91 H O2 Saturation 97 100 99 Oxygen O2 Source Room air Procedures - Epistaxis Site: Left, Anterior Preparation: Clots removed, Afrin, Cocaine, Clamp / pressure applied Other: Pt tolerated well, Other (observed) PD MEDICAL DECISION MAKING - ED course Complexity details: re-evaluated patient, considered differential, d/w patient ED course: acute anterior epistaxis, posterior epistaxis, L nostril, 53 y/o M on Eloquis with acute anterior L nare epistaxis, improved with afrin and cotton plegets here. Still some bleeding thus given a trial of topical cocaine and will reassess. Departure - Departure Clinical Impression: Anterior epistaxis Condition: Stable Record reviewed to determine appropriate education?: Yes Instructions: Nosebleed Follow-Up: Hua lElis MD [Primary Care Provider] -
[2019-05-20] MEDS ORDERED: COCAINE 4 ML BOTTLE TOP STA (06:55)
--- NOTE | 2019-05-20 07:49 | ED Physician Documentation ---
PD HPI HEENT - Stated complaint Stated Complaint: NOSEBLEED - Chief complaint Chief Complaint: Heent - History obtained from History obtained from: Patient - History of Present Illness Timing - onset: Today Timing - duration: Hours Timing - details: Abrupt onset, Still present Location: Nose Associated symptoms: Rhinorrhea Similar symptoms before: Diagnosis (epistaxis) Recently seen: Other (The patient has a history of cirrhosis and varacies and liver tumor) - Additional information Additional information: 53-year old male with a history of cirrhosis esophageal varices and liver tumor has developed an nosebleed this morning and is come to the emergency department he was seen by Dr. Krueger who attempted conservative management techniques to stop the nosebleed with Afrin and cocaine and the patient continues to have some oozing of blood. PD PAST MEDICAL HISTORY - Past Medical History Past Medical History: Yes Cardiovascular: Hypertension Respiratory: None Neuro: Head injury, Other Endocrine/Autoimmune: None GI: Esophageal varices, Ulcers, Cirrhosis : None HEENT: None Psych: None Musculoskeletal: Osteoarthritis Derm: None - Past Surgical History Past Surgical History: Yes General: Colonoscopy, EGD - Present Medications Home Medications: Ambulatory Orders Medication Instructions Recorded Confirmed Propranolol [Inderal] 40 mg PO BID 05/08/16 04/25/17 Cyclobenzaprine [Flexeril] 10 mg PO 10/16/18 hydrOXYzine PAMOATE [Vistaril] 25 mg PO 10/16/18 Doxycycline Hyclate 100 mg PO BID #20 capsule 12/04/18 Tramadol HCl 50 mg PO Q6H PRN #15 tablet 12/04/18 - Allergies Allergies/Adverse Reactions: Allergies Allergy/AdvReac Type Severity Reaction Status Date / Time Penicillins Allergy Anaphylaxis Verified 05/20/19 06:37 - Social History Does the pt smoke?: Yes Smoking Status: Current every day smoker Does the pt drink ETOH?: Yes Does the pt have substance abuse?: No - Immunizations Immunizations are current?: Yes - POLST Patient has POLST: No Results - Vitals Vitals: Vital Signs - 24 hr 05/20/19 05/20/19 05/20/19 06:33 06:44 06:47 Temperature 36.3 C L Heart Rate 72 65 64 Respiratory 16 18 17 Rate Blood Pressure 145/91 H O2 Saturation 97 100 99 Oxygen O2 Source Room air Procedures - Epistaxis Site: Left, Anterior Preparation: Clots removed, Afrin, Cocaine, Clamp / pressure applied Treatment: Anterior rhinorocket Other: Observed - no bleeding, Pt tolerated well, O2 sat WNL PD MEDICAL DECISION MAKING - ED course Complexity details: reviewed old records, reviewed results, re-evaluated patient, considered differential, d/w patient ED course: 53-year-old male with persistent nosebleed has some slowing of his bleeding with the use of cocaine packing the nasal cavity and he continues to have some oozing packing is removed and a 4.5 cm anterior Rhino Rocket is placed with successful reduction and bleeding. Departure - Departure Disposition: 01 Home, Self Care Clinical Impression: Anterior epistaxis Condition: Stable Instructions: Nosebleed Follow-Up: Hua Ellis MD [Primary Care Provider] - Comments: You will need to have the rhino-rocket removed tomorrow morning. Follow up here or with Dr. Ellis. And Riki don't drink any more alcohol it will likely complicate your already complicated course.
== END 2019-05-20 08:27 | disposition home or self-care (01) ==
LOC: EDUNIT# → ED 06:30
DX: R04.0 Epistaxis (principal); F17.200 Nicotine dependence, unspecified, uncomplicated
CPT/HCPCS: 30901; 99282; 99283; A9270

== ENCOUNTER 2019-05-22 13:52 | Emergency (ER) | payer MEDICAID ==
[2019-05-22 14:01] VITALS: BP 168/89
--- NOTE | 2019-05-22 14:02 | ED Physician Documentation ---
History of Present Illness - Stated complaint Stated Complaint: NOSE PX - Chief complaint Chief Complaint: Heent - History obtained from History obtained from: Patient - History of Present Illness Timing: How many days ago (2) Pain level max: 0 Pain level now: 0 - Additonal information Additional information: 53-year-old male had packing placed in the left nare for epistaxis 2 days ago. Here to have it removed. No further bleeding. No fevers. No current complaints Review of Systems Constitutional: denies: Fever, Chills Throat: denies: Sore throat Respiratory: denies: Cough GI: denies: Vomiting Skin: denies: Rash PD PAST MEDICAL HISTORY - Past Medical History Cardiovascular: Hypertension Respiratory: None Neuro: Head injury, Other Endocrine/Autoimmune: None GI: Esophageal varices, Ulcers, Cirrhosis : None HEENT: None Psych: None Musculoskeletal: Osteoarthritis Derm: None - Past Surgical History Past Surgical History: Yes General: Colonoscopy, EGD - Present Medications Home Medications: Ambulatory Orders Medication Instructions Recorded Confirmed Propranolol [Inderal] 40 mg PO BID 05/08/16 04/25/17 Cyclobenzaprine [Flexeril] 10 mg PO 10/16/18 hydrOXYzine PAMOATE [Vistaril] 25 mg PO 10/16/18 Doxycycline Hyclate 100 mg PO BID #20 capsule 12/04/18 Tramadol HCl 50 mg PO Q6H PRN #15 tablet 12/04/18 - Allergies Allergies/Adverse Reactions: Allergies Allergy/AdvReac Type Severity Reaction Status Date / Time Penicillins Allergy Anaphylaxis Verified 05/22/19 13:58 - Social History Does the pt smoke?: Yes Smoking Status: Current every day smoker Does the pt drink ETOH?: Yes Does the pt have substance abuse?: No - Immunizations Immunizations are current?: Yes - POLST Patient has POLST: No PD ED PE NORMAL - Vitals Vital signs reviewed: Yes - General General: Alert and oriented X 3, No acute distress, Well developed/nourished - HEENT HEENT: Moist mucous membranes, Other (Packing in the left nare. This was removed. No active bleeding) - Neck Neck: Supple, no meningeal sign - Derm Derm: Warm and dry - Neuro Neuro: Alert and oriented X 3 - Psych Psych: Normal mood, Normal affect Results - Vitals Vitals: Vital Signs - 24 hr 05/22/19 13:58 Temperature 36.8 C Heart Rate 73 Respiratory 16 Rate Blood Pressure 168/89 H O2 Saturation 98 Oxygen O2 Source Room air PD MEDICAL DECISION MAKING - ED course Complexity details: considered differential, d/w patient ED course: Packing removed. Tolerated well. No further bleeding. Patient counseled regarding signs and symptoms for which I believe and urgent re-evaluation would be necessary. Patient with good understanding of and agreement to plan and is comfortable going home at this time This document was made in part using voice recognition software. While efforts are made to proofread this document, sound alike and grammatical errors may occur. Departure - Departure Disposition: 01 Home, Self Care Clinical Impression: Encounter for removal of nasal packing Condition: Good Instructions: ED Nosebleed Follow-Up: Helen Carrion ARNP [Primary Care Provider] - Within 1 week Comments: Return if you worsen. You can use afrin twice a day for the next 3 days. Do not blow or pick your nose as this may dislodge the clot.
[2019-05-22] MEDS ORDERED: ONDANSETRON ODT 4 MG TABLET TL STA (14:23)
== END 2019-05-22 14:26 | disposition home or self-care (01) ==
LOC: ED 13:52
DX: Z48.00 Encounter for change or removal of nonsurgical wound dressing (principal); I10 Essential (primary) hypertension; F17.200 Nicotine dependence, unspecified, uncomplicated
CPT/HCPCS: 99282; Q0162

== ENCOUNTER 2019-05-30 16:03 | Outpatient (CLI) | payer MEDICAID | END 2019-05-30 16:04 | disposition short-term general hospital (02) | LOC: EMS 16:03 | PROVIDERS: ATTEND Surgery | DX: R04.0 Epistaxis (principal); R11.0 Nausea | CPT/HCPCS: A0425; A0427; A0999 ==

== ENCOUNTER 2019-06-28 12:31 | Outpatient (CLI) | payer MEDICAID | END 2019-06-28 12:32 | disposition critical access hospital (66) | LOC: EMS 12:31 | PROVIDERS: ATTEND Surgery | DX: R04.0 Epistaxis (principal) | CPT/HCPCS: A0425; A0429; A0999 ==

== ENCOUNTER 2019-06-28 13:06 | Emergency (ER) | payer MEDICAID ==
--- NOTE | 2019-06-28 13:00 | ED Physician Documentation ---
PD HPI HEENT - Stated complaint Stated Complaint: NOSEBLEED - History obtained from History obtained from: Patient - History of Present Illness Timing - onset: Last night Timing - duration: Hours (14) Location: Nose Recently seen: Surgery - Additional information Additional information: Is a 54-year-old man who presents with complaints that his nose started bleeding at 1130 last night after he picked it. He says he is been through this routine before he knows how to get him to stop but this will just will not stop. He was at the [facility] days ago to have a biopsy of a tumor on his liver. He was quick to tell me that he takes oxycodone for his chronic back pain. He denies any extensive bruising. He is been feeling dizzy but no loss of consciousness. He says he spitting out blood and has lost a tremendous amount of blood. He is short of breath with exertion but no chest pain. Review of Systems Constitutional: denies: Fever Nose: reports: Epistaxis Cardiac: denies: Chest pain / pressure Respiratory: reports: Dyspnea GI: reports: Nausea, Vomiting Musculoskeletal: reports: Back pain PD PAST MEDICAL HISTORY - Present Medications Home Medications: Ambulatory Orders Medication Instructions Recorded Confirmed Propranolol [Inderal] 40 mg PO BID 05/08/16 04/25/17 Cyclobenzaprine [Flexeril] 10 mg PO 10/16/18 hydrOXYzine PAMOATE [Vistaril] 25 mg PO 10/16/18 Doxycycline Hyclate 100 mg PO BID #20 capsule 12/04/18 Tramadol HCl 50 mg PO Q6H PRN #15 tablet 12/04/18 Ondansetron Odt [Zofran] 4 mg TL Q6H PRN #10 tablet 05/22/19 - Allergies Allergies/Adverse Reactions: Allergies Allergy/AdvReac Type Severity Reaction Status Date / Time Penicillins Allergy Anaphylaxis Verified 06/28/19 13:10 PD ED PE NORMAL - Vitals Vital signs reviewed: Yes - General General: Alert and oriented X 3, No acute distress, Well developed/nourished, Other (Patient smells strongly of alcohol.) - HEENT HEENT: Atraumatic, Moist mucous membranes, Other (Patient has scleral icterus) - Cardiac Cardiac: RRR, No murmur, Strong equal pulses - Respiratory Respiratory: No respiratory distress, Clear bilaterally Results - Vitals Vitals: Vital Signs - 24 hr 06/28/19 13:10 Temperature 37 C Heart Rate 71 Respiratory 16 Rate Blood Pressure 135/74 H O2 Saturation 99 Oxygen O2 Source Room air - Labs Labs: Laboratory Tests 06/28/19 06/28/19 06/28/19 13:50 13:50 13:50 WBC 6.6 RBC 2.31 L Hgb 7.4 L Hct 22.6 L MCV 97.8 H MCH 32.0 H MCHC 32.7 RDW 16.2 H Plt Count 61 L MPV 11.2 Neut # (Auto) 3.0 Lymph # (Auto) 2.7 [place]ether # (Auto) 0.7 Eos # (Auto) 0.2 Baso # (Auto) 0.1 Absolute Nucleated RBC 0.00 Nucleated RBC % 0.0 PT 13.2 H INR 1.2 Sodium 143 Potassium 4.0 Chloride 107 Carbon Dioxide 28 Anion Gap 8.0 BUN 19 Creatinine 1.3 H Estimated GFR (MDRD) 57 L Glucose 128 H Calcium 8.1 L Total Bilirubin 1.3 H AST 69 H ALT 21 Alkaline Phosphatase 145 H Total Protein 7.6 Albumin 3.0 L Globulin 4.6 H Albumin/Globulin Ratio 0.7 L Lipase 42 Procedures - Epistaxis Site: Left Preparation: Afrin, Other (tetracaine. Cotton ball was soaked with tetracaine and Afrin and inserted in the left nostril and pressure was held. He was still bleeding profusely through this.Cotton ball was soaked with tetracaine and Afrin and inserted in the left nostril and pressure was held. He was still bleeding profusely through this.) Treatment: Other (Anterior rapid Rhino was placed and 5 cc of air instilled into the bladder.) PD MEDICAL DECISION MAKING - ED course ED course: 1455: I was just notified by nursing staff that the patient eloped. Review of labs show Hgb of only 7.4 and plts of 61. We will asked nursing staff to try and make phone contact with the patient to let him know that he is anemic. Borderline on needing a transfusion. If he continues to feel dizzy or black out he should be seen immediately. Also have them recommend a iron supplement. Departure - Departure Disposition: ED Elope Clinical Impression: Epistaxis Discharge Date/Time: 06/28/19 14:52
[2019-06-28 13:14] VITALS: BP 135/74
[2019-06-28] MEDS ORDERED: TETRACAINE 0.5% OPHTH DROPS 4 ML EACHEYE ONE (13:22)
[2019-06-28] MEDS ORDERED: OXYMETAZOLINE HCL 100 SPRAYS BOTTLE NAS STA (13:22)
[2019-06-28 13:59] LABS: BASOPHILS # (AUTO) 0.1 10^3/uL (0.0-0.1); BASOPHILS % (AUTO) 0.9 %; EOSINOPHILS # (AUTO) 0.2 10^3/uL (0.0-0.7); EOSINOPHILS % (AUTO) 2.3 %; HGB - HEMOGLOBIN 7.4 g/dL (14.0-18.0); LYMPHOCYTES # (AUTO) 2.7 10^3/uL (1.5-3.5); LYMPHOCYTES % (AUTO) 40.3 %; MEAN CORPUSCULAR HGB CONC 32.7 g/dL (32.0-36.0); MEAN CORPUSCULAR VOLUME 97.8 fL (80.0-94.0); MEAN PLATELET VOLUME 11.2 fL (7.4-11.4); MONOCYTES # (AUTO) 0.7 10^3/uL (0.0-1.0); NEUTROPHILS % (AUTO) 46.2 %; PLT - PLATELET COUNT 61 10^3/uL (130-450); RED BLOOD COUNT 2.31 10^6/uL (4.70-6.10); RED CELL DISTRIBUTION WIDTH 16.2 % (12.0-15.0); WHITE BLOOD COUNT 6.6 x10^3/uL (4.8-10.8)
[2019-06-28 14:03] LABS: INR 1.2 (0.8-1.2); PT - PROTHROMBIN TIME 13.2 secs (9.9-12.6)
[2019-06-28 14:11] LABS: ALBUMIN/GLOBULIN RATIO 0.7 (1.0-2.2); BILIRUBIN,TOTAL 1.3 mg/dL (0.2-1.0); CALCIUM 8.1 mg/dL (8.5-10.3); CREATININE 1.3 mg/dL (0.6-1.2); TOTAL PROTEIN 7.6 g/dL (6.7-8.2)
== END 2019-06-28 14:52 | disposition left against medical advice (07) ==
LOC: EDUNIT# → ED 13:06
DX: R04.0 Epistaxis (principal); D64.9 Anemia, unspecified; Z53.20 Procedure and treatment not carried out because of patient's decision for unspecified reasons
CPT/HCPCS: 30901; 36415; 80053; 83690; 85025; 85610; 99283; A9270

== ENCOUNTER 2019-06-29 10:32 | Emergency (ER) | payer MEDICAID ==
[2019-06-29 10:40] VITALS: BP 129/63
[2019-06-29 11:05] LABS: BASOPHILS % (AUTO) 0.6 %; EOSINOPHILS % (AUTO) 2.1 %; HGB - HEMOGLOBIN 7.2 g/dL (14.0-18.0); MEAN PLATELET VOLUME 11.1 fL (7.4-11.4); MONOCYTES % (AUTO) 8.3 %; NEUTROPHILS % (AUTO) 53.7 %; PLT - PLATELET COUNT 52 10^3/uL (130-450); RED BLOOD COUNT 2.25 10^6/uL (4.70-6.10); RED CELL DISTRIBUTION WIDTH 16.2 % (12.0-15.0); WHITE BLOOD COUNT 6.3 x10^3/uL (4.8-10.8)
[2019-06-29 11:08] LABS: ABNORMAL LYMPHS % (MANUAL) 0 %; BAND NEUTROPHILS % (MANUAL) 0 %
--- NOTE | 2019-06-29 11:08 | ED Physician Documentation ---
PD HPI HEENT - Stated complaint Stated Complaint: NOSE BLEED - Chief complaint Chief Complaint: Heent - History obtained from History obtained from: Patient - History of Present Illness Timing - onset: Yesterday Timing - duration: Days (2) Timing - details: Abrupt onset Location: Nose Recently seen: Emergency Dept - Additional information Additional information: Is a 54-year-old patient whom I saw yesterday in the emergency department with a nosebleed. He is back again today telling me that the balloon came out spontaneously around 5:00 this morning. Even with the balloon in he felt blood dripping down the back of his throat. Now it seems to be coming from both nostrils. He is insistent that this all started after he had a silver nitrate in the nose years ago and has had persistent recurrent nosebleeds since then. He says in the past they have used cocaine to numb it and stop the bleeding and he is concerned he may need that again because of the bleeding that persisted yesterday even with the Rhino balloon in. He was unaware that he was anemic. I told him we tried to track him down after he eloped yesterday but he claims he left because no one had been in the room for 20 minutes. PD PAST MEDICAL HISTORY - Past Medical History Cardiovascular: Hypertension Respiratory: None Neuro: Head injury, Other Endocrine/Autoimmune: None GI: Esophageal varices, Ulcers, Cirrhosis : None HEENT: None Psych: None Musculoskeletal: Osteoarthritis Derm: None - Past Surgical History Past Surgical History: Yes General: Colonoscopy, EGD - Present Medications Home Medications: Ambulatory Orders Medication Instructions Recorded Confirmed Propranolol [Inderal] 40 mg PO BID 05/08/16 04/25/17 Cyclobenzaprine [Flexeril] 10 mg PO 10/16/18 hydrOXYzine PAMOATE [Vistaril] 25 mg PO 10/16/18 Doxycycline Hyclate 100 mg PO BID #20 capsule 12/04/18 Tramadol HCl 50 mg PO Q6H PRN #15 tablet 12/04/18 Ondansetron Odt [Zofran] 4 mg TL Q6H PRN #10 tablet 05/22/19 Ferrous Sulfate 325 mg PO DAILY #30 tablet 06/29/19 - Allergies Allergies/Adverse Reactions: Allergies Allergy/AdvReac Type Severity Reaction Status Date / Time Penicillins Allergy Anaphylaxis Verified 06/28/19 13:10 - Social History Does the pt smoke?: Yes Smoking Status: Current every day smoker Does the pt drink ETOH?: Yes Does the pt have substance abuse?: No - Immunizations Immunizations are current?: Yes - POLST Patient has POLST: No Results - Vitals Vitals: Vital Signs - 24 hr 06/29/19 10:37 Temperature 36.9 C Heart Rate 70 Respiratory 20 Rate Blood Pressure 129/63 O2 Saturation 99 Oxygen O2 Source Room air - Labs Labs: Laboratory Tests 06/29/19 06/29/19 10:55 10:55 WBC 6.3 RBC 2.25 L Hgb 7.2 L Hct 22.5 L MCV 100.0 H MCH 32.0 H MCHC 32.0 RDW 16.2 H Plt Count 52 L MPV 11.1 Neut # (Auto) Not Reportable Lymph # (Auto) Not Reportable [place] # (Auto) Not Reportable Eos # (Auto) Not Reportable Baso # (Auto) Not Reportable Absolute Nucleated RBC Not Reportable Total Counted 100 Band Neuts % (Manual) 0 Abnorm Lymph % (Manual) 0 Nucleated RBC % Not Reportable Neutrophils # (Manual) 3.3 Lymphocytes # (Manual) 2.6 Monocytes # (Manual) 0.3 Eosinophils # (Manual) 0.1 Basophils # (Manual) 0.0 Nucleated RBCs 1 Differential Comment MANUAL DIFFERENTIAL Platelet Estimate DECREASED (<130,000) Platelet Morphology NORMAL APPEARANCE RBC Morph Micro Appear 1+ TARGET CELLS Ethyl Alcohol 405.9 Procedures - Epistaxis Site: Left, Cannot determine Preparation: Clots removed, Cocaine Treatment: Ant post rhinorocket (Rapid Rhino) Other: Observed - no bleeding, Pt tolerated well PD MEDICAL DECISION MAKING - ED course Complexity details: reviewed results, re-evaluated patient, d/w patient ED course: The patient was asking to be discharged before I even had finished my initial interview. He wanted to go smoke a cigarette and to go to his doctor's office for a prescription. Bleeding was controlled with a 7.5 cm Rapid Rhino with 4 cc air instilled in the bladder. We discussed his anemia, he is borderline for need of a transfusion. His Hgb has not dropped much since yesterday so I am not convinced this is an acute issue related to the nosebleed. He does not want to stay for transfusion at this time and agrees to follow-up with his doctor for work up of the anemia. He is placed on iron supplement which he agrees to take to counteract the acute blood loss. Encouraged to return if he is short of breath, feels dizzy or continues bleeding. Departure - Departure Disposition: 01 Home, Self Care Clinical Impression: Epistaxis Alcohol intoxication Qualifiers: Complication of substance-induced condition: with unspecified complication Qualified Code(s): F10.929 - Alcohol use, unspecified with intoxication, unspecified Condition: Good Instructions: ED Anemia Type Not Specified, ED Nosebleed Prescriptions: Ferrous Sulfate 325 mg PO DAILY #30 tablet Comments: Take the iron supplement as prescribed. You are severely anemic, borderline to needing a transfusion. You should follow-up with your doctor to identify the source of the anemia. Return to the ED if you continue with your nose bleeding or you are feeling dizzy or pass out. Discharge Date/Time: 06/29/19 12:11
[2019-06-29] MEDS ORDERED: COCAINE 4 ML BOTTLE TOP STA (11:10)
[2019-06-29 11:23] LABS: EOSINOPHILS # (MANUAL) 0.1 10^3/uL (0-0.7); LYMPHOCYTES # (MANUAL) 2.6 10^3/uL (1.5-3.5); LYMPHOCYTES % (MANUAL) 42 %; MONOCYTES # (MANUAL) 0.3 10^3/uL (0.0-1.0)
[2019-06-29 11:25] LABS: DIFFERENTIAL COMMENT MANUAL DIFFERENTIAL; PLATELET ESTIMATE, MANUAL DECREASED (<130,000) (NORMAL); PLATELET MORPHOLOGY NORMAL APPEARANCE (NORMAL)
--- NOTE | 2019-07-19 07:07 | ED Physician Documentation ---
ED Addendum - Addendum Addendum: 07/19/19 07:05 Physical exam: Well-developed well-nourished 54-year-old man who smells strongly of alcohol. He is being very pleasant. There is dried blood on the face and around the left nostril. There is a large clot in the left nostril that was removed. There is an active bleeding with some dripping of blood. No discrete area of bleeding could be found on the anterior septum for cautery. Oropharynx is dry mucous membranes there is no clot in the posterior pharynx although there is dried blood in the back of the mouth. No respiratory distress. Patient was up and ambulating without any ataxia in the department and no obvious neurological deficits.
== END 2019-06-29 12:11 | disposition home or self-care (01) ==
LOC: ED 10:32
DX: R04.0 Epistaxis (principal); F10.929 Alcohol use, unspecified with intoxication, unspecified; D64.9 Anemia, unspecified; I10 Essential (primary) hypertension; F17.210 Nicotine dependence, cigarettes, uncomplicated
CPT/HCPCS: 30905; 36415; 80320; 85025

== ENCOUNTER 2019-08-10 08:50 | Outpatient (CLI) | payer MEDICAID | END 2019-08-10 08:51 | disposition critical access hospital (66) | LOC: EMS 08:50 | PROVIDERS: ATTEND Surgery | DX: R04.0 Epistaxis (principal) | CPT/HCPCS: A0425; A0429 ==

== ENCOUNTER 2019-08-10 09:27 | Emergency (ER) | payer MEDICAID ==
--- NOTE | 2019-08-10 09:58 | ED Physician Documentation ---
PD HPI HEENT - Stated complaint Stated Complaint: NOSE BLEED - Chief complaint Chief Complaint: Heent - History obtained from History obtained from: Patient - History of Present Illness Timing - onset: Last night (about 3 am) Timing - duration: Hours Timing - details: Abrupt onset, Still present, Waxing and waning Location: Nose (left anterior nosebleed after blowing nose. history of low platelets and liver disease.) Associated symptoms: No: Fever, Congestion, Rhinorrhea Similar symptoms before: Diagnosis (recurrent nosebleeds. Has appt with ENT in August.) Recently seen: Not recently seen Review of Systems Constitutional: denies: Fever, Chills Nose: reports: Epistaxis. denies: Rhinorrhea / runny nose, Congestion, Sinus pressure / pain Throat: denies: Sore throat Respiratory: denies: Cough Endocrine: reports: Easy bruising / bleeding. denies: Weight loss PD PAST MEDICAL HISTORY - Past Medical History Past Medical History: Yes Cardiovascular: Hypertension Respiratory: None Neuro: Head injury Endocrine/Autoimmune: None GI: Esophageal varices, Ulcers, Cirrhosis : None HEENT: None Psych: None Musculoskeletal: Osteoarthritis Derm: None Other Past Medical History: Nose bleeds - Past Surgical History Past Surgical History: Yes General: Colonoscopy, EGD - Present Medications Home Medications: Ambulatory Orders Medication Instructions Recorded Confirmed Propranolol [Inderal] 40 mg PO BID 05/08/16 04/25/17 Cyclobenzaprine [Flexeril] 10 mg PO 10/16/18 hydrOXYzine PAMOATE [Vistaril] 25 mg PO 10/16/18 Doxycycline Hyclate 100 mg PO BID #20 capsule 12/04/18 Tramadol HCl 50 mg PO Q6H PRN #15 tablet 12/04/18 Ondansetron Odt [Zofran] 4 mg TL Q6H PRN #10 tablet 05/22/19 Ferrous Sulfate 325 mg PO DAILY #30 tablet 06/29/19 - Allergies Allergies/Adverse Reactions: Allergies Allergy/AdvReac Type Severity Reaction Status Date / Time Penicillins Allergy Anaphylaxis Verified 08/10/19 09:38 - Social History Does the pt smoke?: Yes Smoking Status: Current every day smoker Does the pt drink ETOH?: Yes Does the pt have substance abuse?: No - Immunizations Immunizations are current?: Yes - POLST Patient has POLST: No PD ED PE NORMAL - Vitals Vital signs reviewed: Yes - General General: Alert and oriented X 3 (but with slurred speech and some mild ataxia. ), No acute distress, Well developed/nourished - HEENT HEENT: Other (left anterior medial wall with ongoing bleeding from small point vessel. ) - Neck Neck: Supple, no meningeal sign, No adenopathy - Cardiac Cardiac: RRR, No murmur - Respiratory Respiratory: Clear bilaterally - Derm Derm: Normal color, Warm and dry - Neuro Neuro: Alert and oriented X 3, No motor deficit, Normal speech Results - Vitals Vitals: Oxygen O2 Source Room air - Labs Labs: Laboratory Tests 08/10/19 08/10/19 10:28 10:28 WBC 5.6 RBC 2.57 L Hgb 8.3 L Hct 25.5 L MCV 99.2 H MCH 32.3 H MCHC 32.5 RDW 15.2 H Plt Count 24 L* MPV 12.4 H Neut # (Auto) 2.2 Lymph # (Auto) 2.4 [place] # (Auto) 0.8 Eos # (Auto) 0.1 Baso # (Auto) 0.0 Absolute Nucleated RBC 0.00 Nucleated RBC % 0.0 Manual Slide Review Indicated Platelet Estimate DECREASED (<130,000) Sodium 141 Potassium 3.6 Chloride 105 Carbon Dioxide 29 Anion Gap 7.0 BUN 26 H Creatinine 1.3 H Estimated GFR (MDRD) 57 L Glucose 138 H Calcium 8.0 L Total Bilirubin 1.5 H AST 133 H ALT 37 Alkaline Phosphatase 135 H Total Protein 7.4 Albumin 3.2 Globulin 4.2 Albumin/Globulin Ratio 0.8 L Lipase 119 H Ethyl Alcohol 387.3 Procedures - Epistaxis Site: Left, Anterior Preparation: Afrin, Lidocaine, Clamp / pressure applied, Other (TXA) Treatment: Silver Nitrate, Packing inserted Other: Observed - no bleeding, Pt tolerated well Departure - Departure Disposition: 01 Home, Self Care Clinical Impression: Acute anterior epistaxis, Thrombocytopenia Alcohol intoxication Qualifiers: Complication of substance-induced condition: uncomplicated Qualified Code(s): F10.920 - Alcohol use, unspecified with intoxication, uncomplicated Condition: Stable Record reviewed to determine appropriate education?: Yes Instructions: ED Nasal Packing Anterior Removable Follow-Up: Hua Ellis MD [Primary Care Provider] - Comments: Leave the packing in for 1 to 2 days and then remove it gently. Use the nasal spray to re-saturate the packing 3-4 times a day. To return if bleeding again. Discharge Date/Time: 08/10/19 12:50
[2019-08-10] MEDS ORDERED: TRANEXAMIC ACID 1,000 MG/10 ML VIAL NAS STA (10:17)
[2019-08-10] MEDS ORDERED: OXYMETAZOLINE HCL 100 SPRAYS BOTTLE NAS STA (10:17)
[2019-08-10 10:38] LABS: BASOPHILS % (AUTO) 0.7 %; EOSINOPHILS # (AUTO) 0.1 10^3/uL (0.0-0.7); EOSINOPHILS % (AUTO) 1.8 %; HGB - HEMOGLOBIN 8.3 g/dL (14.0-18.0); LYMPHOCYTES # (AUTO) 2.4 10^3/uL (1.5-3.5); LYMPHOCYTES % (AUTO) 43.8 %; MEAN CORPUSCULAR HEMOGLOBIN 32.3 pg (27.0-31.0); MEAN CORPUSCULAR HGB CONC 32.5 g/dL (32.0-36.0); MEAN CORPUSCULAR VOLUME 99.2 fL (80.0-94.0); MEAN PLATELET VOLUME 12.4 fL (7.4-11.4); MONOCYTES # (AUTO) 0.8 10^3/uL (0.0-1.0); NEUTROPHILS # (AUTO) 2.2 10^3/uL (1.5-6.6); NEUTROPHILS % (AUTO) 39.2 %; RED BLOOD COUNT 2.57 10^6/uL (4.70-6.10); RED CELL DISTRIBUTION WIDTH 15.2 % (12.0-15.0); WHITE BLOOD COUNT 5.6 x10^3/uL (4.8-10.8)
[2019-08-10 10:46] LABS: PLT - PLATELET COUNT 24 10^3/uL (130-450)
[2019-08-10 10:51] LABS: ALBUMIN 3.2 g/dL (3.2-5.5); ALBUMIN/GLOBULIN RATIO 0.8 (1.0-2.2); BILIRUBIN,TOTAL 1.5 mg/dL (0.2-1.0); CREATININE 1.3 mg/dL (0.6-1.2); TOTAL PROTEIN 7.4 g/dL (6.7-8.2)
[2019-08-10 11:02] LABS: PLATELET ESTIMATE, MANUAL DECREASED (<130,000) (NORMAL)
[2019-08-10] MEDS ORDERED: FAMOTIDINE 20 MG TABLET PO STA (11:40)
[2019-08-10] MEDS ORDERED: ONDANSETRON ODT 4 MG TABLET TL STA (11:40)
[2019-08-10 12:07] VITALS: BP 150/79
== END 2019-08-10 12:50 | disposition home or self-care (01) ==
LOC: EDUNIT# → ED 09:27
DX: R04.0 Epistaxis (principal); D69.6 Thrombocytopenia, unspecified; K74.60 Unspecified cirrhosis of liver; R47.81 Slurred speech; R27.0 Ataxia, unspecified; I10 Essential (primary) hypertension; F17.200 Nicotine dependence, unspecified, uncomplicated; Z79.899 Other long term (current) drug therapy
CPT/HCPCS: 30901; 36415; 80053; 80320; 83690; 85025; 99283; 99284; A9270; Q0162

== ENCOUNTER 2019-09-05 07:53 | Outpatient (CLI) | payer MEDICAID ==
--- NOTE | 2019-09-05 09:59 | Ultrasound Report ---
Reason: HEMATURIA Procedure Date: 09/05/2019 Accession Number: [id number] / [id number] Procedure: US - Retroperitoneal CPT Code: Addended Final Report FULL RESULT: EXAM: RENAL ULTRASOUND EXAM DATE: 09/05/2019 09:14 AM. CLINICAL HISTORY: HEMATURIA. Concern for hydronephrosis. COMPARISON: ABDOMEN W/WO 09/12/2017 10:00 AM ABDOMEN LIMITED 05/27/2017 9:40 AM. TECHNIQUE: Real-time scanning was performed with static images obtained. FINDINGS: Right Kidney: 11.1 x 5.9 x 7.0 cm. Normal echotexture with no stones, contour-deforming masses, or hydronephrosis. Left Kidney: 12.4 x 4.9 x 5.9 cm. Normal echotexture with no stones, contour-deforming masses, or hydronephrosis. Bladder: The right ureteral jet was not visualized. The left ureteral jet was seen. The prevoid bladder volume was 228 cc. The postvoid bladder volume was 7 cc. The bladder is unremarkable. Other: The prostate measures approximately 2.5 x 2.4 x 4.2 cm. IMPRESSION: 1. Normal renal ultrasound. No hydronephrosis bilaterally. 2. The right ureteral jet was not seen during the exam. The left ureteral jet was visualized. The urinary bladder is unremarkable. RAD[facility] The call report notification system was initiated by Dr. Nico Jordan at 09:59 AM on 09/05/2019. ADDENDUM: 09/05/19 10:30 The above call report findings were discussed with Hua Ellis by Dr. Nico Jordan at 10:30 AM on 09/05/2019.
== END 2019-09-05 07:54 | disposition home or self-care (01) ==
LOC: DI 07:53
PROVIDERS: ATTEND Family Medicine
DX: R31.9 Hematuria, unspecified (principal)
CPT/HCPCS: 76770

== ENCOUNTER 2020-05-15 15:28 | Outpatient (CLI) | payer MEDICAID | END 2020-05-15 15:29 | disposition critical access hospital (66) | LOC: EMS 15:28 | PROVIDERS: ATTEND Surgery | DX: Z04.89 Encounter for examination and observation for other specified reasons (principal); M54.2 Cervicalgia; M54.9 Dorsalgia, unspecified | CPT/HCPCS: A0425; A0427; A0999 ==

== ENCOUNTER 2020-11-03 07:16 | Outpatient (CLI) | payer MEDICAID | END 2020-11-03 07:17 | disposition critical access hospital (66) | LOC: EMS 07:16 | PROVIDERS: ATTEND Emergency Medicine | DX: R04.0 Epistaxis (principal) | CPT/HCPCS: A0425; A0427 ==

== ENCOUNTER 2020-11-03 07:53 | Emergency (ER) | payer MEDICAID ==
[2020-11-03] MEDS ORDERED: OXYMETAZOLINE HCL 100 SPRAYS BOTTLE NAS STA (07:55)
--- NOTE | 2020-11-03 07:56 | ED Physician Documentation ---
History of Present Illness - Stated complaint Stated Complaint: NOSE BLEED - History obtained from History obtained from: Patient, EMS - Additonal information Additional information: 55-year-old gentleman with history of alcoholism and cirrhosis presents with on and off bleeding from the left naris for 4 days. Much worse this morning. Review of Systems Ten Systems: 10 systems reviewed and negative Constitutional: reports: Reviewed and negative Ears: reports: Reviewed and negative Throat: reports: Reviewed and negative PD PAST MEDICAL HISTORY - Past Medical History Cardiovascular: Hypertension Respiratory: None Neuro: Head injury Endocrine/Autoimmune: None GI: Esophageal varices, Ulcers, Cirrhosis : None HEENT: None Psych: None Musculoskeletal: Osteoarthritis Derm: None - Past Surgical History Past Surgical History: Yes General: Colonoscopy, EGD - Present Medications Home Medications: Ambulatory Orders Medication Instructions Recorded Confirmed Propranolol [Inderal] 40 mg PO BID 05/08/16 04/25/17 Cyclobenzaprine [Flexeril] 10 mg PO 10/16/18 hydrOXYzine PAMOATE [Vistaril] 25 mg PO 10/16/18 Doxycycline Hyclate 100 mg PO BID #20 capsule 12/04/18 Tramadol HCl 50 mg PO Q6H PRN #15 tablet 12/04/18 Ondansetron Odt [Zofran] 4 mg TL Q6H PRN #10 tablet 05/22/19 Ferrous Sulfate 325 mg PO DAILY #30 tablet 06/29/19 clindamycin HCL [Cleocin HCl] 300 mg PO QID #20 cap 11/03/20 - Allergies Allergies/Adverse Reactions: Allergies Allergy/AdvReac Type Severity Reaction Status Date / Time Penicillins Allergy Anaphylaxis Verified 11/03/20 08:29 - Social History Does the pt smoke?: Yes Smoking Status: Current every day smoker Does the pt drink ETOH?: Yes Does the pt have substance abuse?: No - Immunizations Immunizations are current?: Yes - POLST Patient has POLST: No PD ED PE NORMAL - Vitals Vital signs reviewed: Yes - General General: Alert and oriented X 3, No acute distress - HEENT HEENT: PERRL, Other (icteric; Active bleeding from the left nostril) - Neck Neck: Supple, no meningeal sign, No bony TTP - Cardiac Cardiac: RRR, No murmur - Respiratory Respiratory: No respiratory distress, Clear bilaterally - Abdomen Abdomen: Non tender - Back Back: No CVA TTP, No spinal TTP - Derm Derm: Normal color, Warm and dry - Neuro Neuro: Alert and oriented X 3, Normal speech Results - Vitals Vitals: Vital Signs - 24 hr 11/03/20 11/03/20 07:54 09:09 Temperature 35.9 C L Heart Rate 63 60 Respiratory 18 18 Rate Blood Pressure 116/71 118/75 O2 Saturation 98 97 Oxygen O2 Source Room air Procedures - Epistaxis Site: Left, Anterior Preparation: Clots removed, Afrin, Other (Initially tried with Afrin and silver nitrate. That was ineffective so an anterior Rhino Rocket was placed.) Treatment: Anterior rhinorocket PD MEDICAL DECISION MAKING - ED course ED course: 55-year-old gentleman with cirrhosis presents with 4 days of bleeding from the left naris. He refused blood draw. I discussed with him that he may be more anemic, and his platelets might be quite low. 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 Topical tranexamic acid and oxymetazoline were initially used. Still fairly brisk bleeding obscuring the actual site of bleeding but was clearly anterior. There was an attempt at cautery, but this was ineffective so he was packed with an anterior Rhino Rocket and placed on clindamycin noting his anaphylactic reaction to penicillins. Departure - Departure Disposition: 01 Home, Self Care Clinical Impression: Anterior epistaxis Condition: Good Record reviewed to determine appropriate education?: Yes Instructions: ED Nasal Packing Anterior Removable Prescriptions: clindamycin HCL [Cleocin HCl] 300 mg PO QID #20 cap Comments: Return or see your physician in approximately 3 days for packing removal. Sooner if worse or if new symptoms develop.
[2020-11-03] MEDS ORDERED: TRANEXAMIC ACID 1,000 MG/10 ML VIAL NAS STA (08:26)
[2020-11-03] MEDS ORDERED: SILVER NITRATE APPLICATOR TOP STA (08:26)
[2020-11-03 09:10] VITALS: BP 118/75
== END 2020-11-03 09:45 | disposition home or self-care (01) ==
LOC: EDUNIT# → ED 07:53
DX: R04.0 Epistaxis (principal); I10 Essential (primary) hypertension; K70.30 Alcoholic cirrhosis of liver without ascites; F10.21 Alcohol dependence, in remission; F17.200 Nicotine dependence, unspecified, uncomplicated; Z88.0 Allergy status to penicillin
CPT/HCPCS: 30901; 99283; A9270; 80053; 80320; 83690; 85025; 85610

== ENCOUNTER 2020-12-09 08:00 | Outpatient (CLI) | payer MEDICAID | END 2020-12-09 23:59 | disposition home or self-care (01) | LOC: LAB.R 08:00 | PROVIDERS: ATTEND Emergency Medicine | DX: J00 Acute nasopharyngitis [common cold] (principal) | CPT/HCPCS: 87070 ==

== ENCOUNTER 2020-12-20 08:00 | Outpatient (CLI) | payer MEDICAID ==
[2020-12-20 17:59] LABS: MUDS CUTOFF CONCENTRATIONS CUTOFF CONC BELOW:
[2020-12-20 18:29] LABS: AMPHETAMINE SCREEN,URINE NEGATIVE (NEGATIVE); BENZODIAZEPINES SCREEN, URINE NEGATIVE (NEGATIVE); COCAINE SCREEN URINE NEGATIVE (NEGATIVE); METHAMPHETAMINES SCREEN, URINE NEGATIVE (NEGATIVE); OPIATE SCREEN, URINE POSITIVE (NEGATIVE); THC CANNABINOID SCREEN, URINE NEGATIVE (NEGATIVE); TRICYCLIC ANTIDEPRESSANT,URINE NEGATIVE (NEGATIVE)
[2020-12-20 18:30] LABS: BARBITURATE SCREEN,UR NEGATIVE (NEGATIVE); METHADONE SCREEN, URINE NEGATIVE (NEGATIVE); OXYCODONE SCREEN, URINE NEGATIVE (NEGATIVE); PROPOXYPHENE SCREEN, URINE NEGATIVE (NEGATIVE)
== END 2020-12-20 23:59 | disposition home or self-care (01) ==
LOC: LAB.WCP 08:00
PROVIDERS: ATTEND Family Medicine
DX: G89.29 Other chronic pain (principal)
CPT/HCPCS: 80306

== ENCOUNTER 2021-02-11 17:31 | Outpatient (CLI) | payer MEDICAID | END 2021-02-11 17:32 | disposition critical access hospital (66) | LOC: EMS 17:31 | DX: S91.302A Unspecified open wound, left foot, initial encounter (principal); S91.301A Unspecified open wound, right foot, initial encounter; X19.XXXA Contact with other heat and hot substances, initial encounter; Y93.01 Activity, walking, marching and hiking | CPT/HCPCS: A0425; A0429 ==

== ENCOUNTER 2021-02-11 18:06 | Emergency (ER) | payer MEDICAID ==
[2021-02-11] MEDS ORDERED: KETOROLAC 30 MG/ML VIAL IVP STA (18:12)
[2021-02-11] MEDS ORDERED: BACITRACIN ZINC OINT 1 PACKET TOP STA (18:12)
[2021-02-11] MEDS ORDERED: TETANUS/DIPHTHERIA/PERTUSSIS 0.5 ML SYRINGE IM ONE (18:12)
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
[2021-02-11 18:39] LABS: BASOPHILS # (AUTO) 0.1 10^3/uL (0.0-0.1); BASOPHILS % (AUTO) 0.9 %; EOSINOPHILS # (AUTO) 0.1 10^3/uL (0.0-0.7); EOSINOPHILS % (AUTO) 1.5 %; HCT - HEMATOCRIT 27.6 % (42.0-52.0); HGB - HEMOGLOBIN 9.1 g/dL (14.0-18.0); LYMPHOCYTES # (AUTO) 2.1 10^3/uL (1.5-3.5); LYMPHOCYTES % (AUTO) 31.8 %; MEAN CORPUSCULAR HEMOGLOBIN 34.9 pg (27.0-31.0); MEAN CORPUSCULAR VOLUME 105.7 fL (80.0-94.0); MEAN PLATELET VOLUME 11.2 fL (7.4-11.4); MONOCYTES # (AUTO) 1.1 10^3/uL (0.0-1.0); MONOCYTES % (AUTO) 17.1 %; NEUTROPHILS # (AUTO) 3.2 10^3/uL (1.5-6.6); NEUTROPHILS % (AUTO) 47.2 %; PLT - PLATELET COUNT 50 10^3/uL (130-450); RED BLOOD COUNT 2.61 10^6/uL (4.70-6.10); RED CELL DISTRIBUTION WIDTH 20.6 % (12.0-15.0); WHITE BLOOD COUNT 6.7 x10^3/uL (4.8-10.8)
[2021-02-11 18:44] LABS: INR 1.4 (0.8-1.2); PT - PROTHROMBIN TIME 15.1 secs (9.9-12.6)
[2021-02-11 18:54] LABS: ALBUMIN 3.3 g/dL (3.2-5.5); ALBUMIN/GLOBULIN RATIO 0.8 (1.0-2.2); BILIRUBIN,TOTAL 3.9 mg/dL (0.2-1.0); CALCIUM 8.7 mg/dL (8.5-10.3); CREATININE 1.1 mg/dL (0.6-1.2); ETOH - ETHANOL 398.1 mg/dL; MAGNESIUM 1.6 mg/dL (1.7-2.8); POTASSIUM 4.5 mmol/L (3.5-5.0); TOTAL PROTEIN 7.6 g/dL (6.7-8.2)
[2021-02-11 20:26] VITALS: BP 150/88
== END 2021-02-11 20:27 | disposition home or self-care (01) ==
LOC: EDUNIT# → ED 18:06 → SUPCPDRO 18:06 → ED 20:27
DX: T25.221A Burn of second degree of right foot, initial encounter (principal); T25.222A Burn of second degree of left foot, initial encounter; F10.229 Alcohol dependence with intoxication, unspecified; F17.200 Nicotine dependence, unspecified, uncomplicated; Z23 Encounter for immunization
CPT/HCPCS: 16020; 36415; 80053; 80320; 83735; 85025; 85610; 90471; 90715; 96374; 99283; A9270

== ENCOUNTER 2021-02-12 07:02 | Outpatient (CLI) | payer MEDICAID | END 2021-02-12 07:03 | disposition short-term general hospital (02) | LOC: EMS 07:02 | DX: T25.022A Burn of unspecified degree of left foot, initial encounter (principal); T25.021A Burn of unspecified degree of right foot, initial encounter; X58.XXXA Exposure to other specified factors, initial encounter | CPT/HCPCS: A0425; A0429; A0999 ==

== ENCOUNTER 2021-03-07 22:31 | Outpatient (CLI) | payer MEDICAID | END 2021-03-07 22:32 | disposition EMS.NT | LOC: EMS 22:31 | DX: S91.301A Unspecified open wound, right foot, initial encounter (principal); X08.8XXA Exposure to other specified smoke, fire and flames, initial encounter ==

== ENCOUNTER 2021-05-05 17:01 | Outpatient (CLI) | payer MEDICAID ==
--- NOTE | 2021-05-09 16:19 | Ultrasound Report ---
PROCEDURE: Abdomen Complete INDICATIONS: ASCITES TECHNIQUE: Real-time scanning was performed of the abdominal and retroperitoneal organs, with image documentatio n. COMPARISON: MRI of abdomen dated 09/12/2017. FINDINGS: Liver: Liver is normal in size. Coarsely echogenic liver parenchyma with nodular liver contour is see n suggestive of cirrhosis. Hypoechoic lesion with echogenic center and internal vascularity is noted in right lobe of liver measures 2.2 x 2 x 1.7 cm in size. 1.1 x 1 x 0.8 cm hypoechoic focus is also n oted in right lobe of liver without definite internal vascularity. Hepatofugal flow is noted within m ain portal vein. Gallbladder: Gallbladder is distended with wall thickening measures up to 4.4 mm in thickness. Multip le nonmobile at foci are noted within gallbladder lumen likely represent adherent stone versus small polyps. No sonographic Adames's sign. Biliary ducts: Intrahepatic bile ducts are non-dilated. Extrahepatic bile duct caliber measures 12. 8 mm. Normal is 6-7 mm or less in diameter, or 10 mm or less post-cholecystectomy. Pancreas: Not visualized. Spleen: Spleen is normal in size and homogeneous in echotexture. Kidneys: Kidneys are normal in size and echotexture. Right kidney measures 10.3 cm long; left kidne y measures 11.3 cm long. No hydronephrosis or nephrolithiasis. No solid masses. Aorta: Visualized aorta is normal in caliber at less than 3 cm. Iliacs: Proximal common iliac arteries are normal in caliber at less than 2.5 cm. IVC: Not visualized. Miscellaneous: Moderate amount of ascites fluid is noted in all 4 quadrants of abdomen. IMPRESSION: 1. Cirrhotic liver with moderate amount of ascites fluid partially limits the evaluation of rest of t he abdominal organs. At least 2 right hepatic lobe lesions as described above not seen on previous MR I of the abdomen study in 2018 consider repeat MRI for further characterization of these lesions. Hep atofugal flow is seen in patent main portal vein. 2. Distended gallbladder with suggestion of adherent stone versus small polyps and diffuse gallbladde r wall thickening. No sonographic Adames's sign. Finding could represent chronic cholecystitis versus changes related to adjacent ascites fluid. 3. No gross intrahepatic biliary ductal dilatation. Common bile duct dilatation measures up to 12.8 a nd then in diameter. MRCP can be done for further evaluation of this area. Reviewed by: Oziel Cabello MD on 05/09/2021 4:18 PM PDT Approved by: Oziel Cabello MD on 05/09/2021 4:18 PM PDT Station ID: [id number]
== END 2021-05-05 17:02 | disposition home or self-care (01) ==
LOC: DI 17:01
PROVIDERS: ATTEND Family Medicine
DX: R18.8 Other ascites (principal); K74.60 Unspecified cirrhosis of liver; R93.2 Abnormal findings on diagnostic imaging of liver and biliary tract; R93.3 Abnormal findings on diagnostic imaging of other parts of digestive tract

== ENCOUNTER 2021-05-18 10:29 | Outpatient (CLI) | payer MEDICAID ==
[2021-05-18 18:00] LABS: BASOPHILS % (AUTO) 0.4 %; EOSINOPHILS # (AUTO) 0.1 10^3/uL (0.0-0.7); EOSINOPHILS % (AUTO) 1.3 %; HCT - HEMATOCRIT 23.1 % (42.0-52.0); HGB - HEMOGLOBIN 7.4 g/dL (14.0-18.0); LYMPHOCYTES # (AUTO) 1.8 10^3/uL (1.5-3.5); MEAN CORPUSCULAR HEMOGLOBIN 36.1 pg (27.0-31.0); MEAN CORPUSCULAR VOLUME 112.7 fL (80.0-94.0); MEAN PLATELET VOLUME 12.6 fL (7.4-11.4); MONOCYTES % (AUTO) 14.4 %; NEUTROPHILS # (AUTO) 4.1 10^3/uL (1.5-6.6); NEUTROPHILS % (AUTO) 58.3 %; PLT - PLATELET COUNT 48 10^3/uL (130-450); RED BLOOD COUNT 2.05 10^6/uL (4.70-6.10); RED CELL DISTRIBUTION WIDTH 16.5 % (12.0-15.0)
[2021-05-18 18:05] LABS: SLIDE REVIEW? Indicated
[2021-05-18 18:25] LABS: BILIRUBIN,DIRECT 0.7 mg/dL (0.1-0.5); BILIRUBIN,TOTAL 2.4 mg/dL (0.2-1.0); CALCIUM 8.2 mg/dL (8.5-10.3); CREATININE 4.2 mg/dL (0.6-1.2); TOTAL PROTEIN 6.2 g/dL (6.7-8.2)
[2021-05-18 18:29] LABS: THYROID STIMULATING HORMONE 2.48 uIU/mL (0.34-5.60)
[2021-05-18 18:30] LABS: FREE T3 3.23 pg/mL (2.5-3.9)
[2021-05-18 18:31] LABS: FREE T4 (FREE THYROXINE) 1.04 ng/dL (0.58-1.64)
[2021-05-18 18:32] LABS: PLATELET ESTIMATE, MANUAL DECREASED (<130,000) (NORMAL); PLATELET MORPHOLOGY NORMAL APPEARANCE (NORMAL); RBC MORPHOLOGY (MULTIPLE) 1+ MACROCYTOSIS (NORMAL); WBC MORPHOLOGY (MULTIPLE) NORMAL APPEARANCE (NORMAL)
== END 2021-05-18 23:59 | disposition home or self-care (01) ==
LOC: LAB.WCP 10:29
PROVIDERS: ATTEND Family Medicine
DX: R18.8 Other ascites (principal)
CPT/HCPCS: 36415; 80048; 80076; 84439; 84443; 84481; 85025

== ENCOUNTER 2021-06-10 15:43 | Emergency (ER) | payer MEDICAID ==
[2021-06-10] MEDS ORDERED: oxyCODONE 5 MG TABLET PO STA (16:09)
[2021-06-10 16:12] VITALS: BP 175/90
--- NOTE | 2021-06-10 16:41 | ED Physician Documentation ---
History of Present Illness - Stated complaint Stated Complaint: ABD TUBE BLEEDING - Chief complaint Chief Complaint: Abd Pain - History obtained from History obtained from: Patient - History of Present Illness Timing: Today Pain level max: 0 Pain level now: 0 - Additonal information Additional information: Patient is a 55-year-old male with end-stage liver disease, cirrhosis and recently revoked hospice. He states that he noticed there was blood on the dressing around the tube in his abdomen. He states that he does not know who was supposed to be changing his dressings. It sounds as if hospice was taking care of this, but when he revoked hospice I do not believe that home health has been set up yet. He states he has not seen his primary care provider since revoking hospice. No fevers. No chills. Has chronic abdominal pain, unchanged. He states he is out of his medications but does not know what medication he takes other than oxycodone. Review of Systems Ten Systems: 10 systems reviewed and negative Constitutional: denies: Fever, Chills Respiratory: denies: Cough GI: denies: Vomiting, Diarrhea Skin: denies: Rash Musculoskeletal: denies: Neck pain, Back pain Neurologic: denies: Headache PD PAST MEDICAL HISTORY - Past Medical History Cardiovascular: Hypertension Respiratory: None Neuro: Head injury Endocrine/Autoimmune: None GI: Esophageal varices, Ulcers, Cirrhosis : None HEENT: None Psych: None Musculoskeletal: Osteoarthritis Derm: None - Past Surgical History Past Surgical History: Yes General: Colonoscopy, EGD - Present Medications Home Medications: Ambulatory Orders Medication Instructions Recorded Confirmed hydrOXYzine PAMOATE [Vistaril] 25 mg PO DAILY 10/16/18 06/10/21 Albuterol Sulfate [Proair 90 mcg IH Q4HR PRN 06/10/21 06/10/21 Respiclick] Furosemide [Lasix] 20 mg PO DAILY 06/10/21 06/10/21 LORazepam [Ativan] 0.5 mg PO Q6H PRN 06/10/21 06/10/21 Lactulose 10 gm PO BID 06/10/21 06/10/21 Oxycodone HCl [Roxicodone] 5 mg PO Q6H PRN #10 tablet 06/10/21 Pantoprazole [Protonix] 1 tab ORAL DAILY 06/10/21 06/10/21 Spironolactone [Aldactone] 25 mg PO BID 06/10/21 06/10/21 oxyCODONE [Roxicodone] 5 mg PO Q6HR PRN 06/10/21 06/10/21 - Allergies Allergies/Adverse Reactions: Allergies Allergy/AdvReac Type Severity Reaction Status Date / Time Penicillins Allergy Anaphylaxis Verified 06/10/21 15:46 - Social History Does the pt smoke?: Yes Smoking Status: Current every day smoker Does the pt drink ETOH?: Yes Does the pt have substance abuse?: No - Immunizations Immunizations are current?: Yes - POLST Patient has POLST: No PD ED PE NORMAL - Vitals Vital signs reviewed: Yes - General General: Alert and oriented X 3, No acute distress - HEENT HEENT: PERRL, Moist mucous membranes, Other (jaundiced with scleral icterus) - Neck Neck: Supple, no meningeal sign - Cardiac Cardiac: RRR, Strong equal pulses - Respiratory Respiratory: No respiratory distress, Clear bilaterally - Abdomen Abdomen: Soft, Non tender, Non distended, Other (drainage tube in the R lower abdomen. no bleeding. no signs of infection.) - Derm Derm: Warm and dry - Extremities Extremities: No calf tenderness / cord - Neuro Neuro: Alert and oriented X 3 - Psych Psych: Normal mood, Normal affect Results - Vitals Vitals: Vital Signs - 24 hr 06/10/21 06/10/21 15:46 16:10 Temperature 36.5 C Heart Rate 58 L 51 L Respiratory 16 18 Rate Blood Pressure 178/88 H 175/90 H O2 Saturation 100 100 Oxygen O2 Source Room air PD MEDICAL DECISION MAKING - ED course Complexity details: considered differential, d/w patient, d/w storage management consultant ED course: The dressing was changed around the patient's abdominal tube. He does not know what the tube is for. I do not have access to his records from [facility]. He does not know his medication list and states he would like refills of medications, but does not know what medications he is on or have access to a list. I contacted Dr. Nieves on-call for the patient's primary care provider Dr. Ellis. She will leave a message for the office to make sure that he gets seen early next week to figure out his chronic medical issues and for medication refills. No other complaints at this time. Patient counseled regarding signs and symptoms for which I believe and urgent re-evaluation would be necessary. Patient with good understanding of and agreement to plan and is comfortable going home at this time This document was made in part using voice recognition software. While efforts are made to proofread this document, sound alike and grammatical errors may occur. Departure - Departure Disposition: 01 Home, Self Care Clinical Impression: Visit for wound check Cirrhosis Qualifiers: Hepatic cirrhosis type: unspecified hepatic cirrhosis Ascites presence: with ascites Qualified Code(s): K74.60 - Unspecified cirrhosis of liver Abdominal pain Qualifiers: Abdominal location: unspecified location Qualified Code(s): R10.9 - Unspecified abdominal pain Condition: Stable Instructions: ED Cirrhosis Liver Follow-Up: Hua Ellis MD [Primary Care Provider] - Within 3 Days Prescriptions: Oxycodone HCl [Roxicodone] 5 mg PO Q6H PRN #10 tablet PRN Reason: Abdominal Pain Comments: It is important that you follow-up with Dr. Flowers this week. I spoke with Dr. Nieves today in the clinic will work to get you in hopefully on Saturday or Saturday for an appointment. You are welcome to return at any time, please bring a list of your current medications with you when you visit the emergency department. Also any paperwork that you have from [facility] or recent hospital stays would be useful as well. Your prescriptions were sent to [facility] in [place] I am prescribing a short course of narcotic pain medication for you. These are potentially dangerous and addictive medications that should be used carefully. These medications may constipate you. Take an ruxs-zzf-egworys stool softener (docusate) twice daily with plenty of water while taking these medications. If you go 24 hours without a bowel movement, take [id number] miralax, per package instructions. Do not drink or drive while taking these medications. If you received narcotic or sedating medications while in the emergency department, do not drive for 24 hours. Store this medication in a safe, secure place and out of reach of children. It is a violation of federal law to give or sell this medication to another person or to use in a manner other than prescribed. The ED will not refill narcotic prescriptions, including prescriptions lost or stolen. To dispose of unwanted medications: 1. [facility] at [address] in [place] has a medication drop box. They accept prescription medications (in pill form) Saturday through Saturday 9:00 a.m. to 5:00 p.m. 2. The [facility] [employer] accepts prescription medications (in pill form only) for disposal year round. Call for more information. 3. Contact the [facility] for the next [employer] sponsored prescription drug collection event. , [phone], or [phone]; Discharge Date/Time: 06/10/21 16:48
== END 2021-06-10 16:48 | disposition home or self-care (01) ==
LOC: ED 15:43
DX: K74.60 Unspecified cirrhosis of liver (principal); R18.8 Other ascites; Z43.8 Encounter for attention to other artificial openings; R10.9 Unspecified abdominal pain; I10 Essential (primary) hypertension; F17.200 Nicotine dependence, unspecified, uncomplicated
CPT/HCPCS: 99282; 99284; A9270

== ENCOUNTER 2021-06-15 12:44 | Emergency (ER) | payer MEDICAID ==
[2021-06-15 13:28] LABS: BASOPHILS % (AUTO) 0.2 %; EOSINOPHILS # (AUTO) 0.2 10^3/uL (0.0-0.7); EOSINOPHILS % (AUTO) 2.2 %; LYMPHOCYTES # (AUTO) 1.2 10^3/uL (1.5-3.5); MEAN CORPUSCULAR HEMOGLOBIN 35.2 pg (27.0-31.0); MEAN CORPUSCULAR HGB CONC 34.1 g/dL (32.0-36.0); MEAN CORPUSCULAR VOLUME 103.4 fL (80.0-94.0); MEAN PLATELET VOLUME 12.2 fL (7.4-11.4); MONOCYTES # (AUTO) 0.9 10^3/uL (0.0-1.0); NEUTROPHILS # (AUTO) 5.7 10^3/uL (1.5-6.6); NEUTROPHILS % (AUTO) 70.7 %; PLT - PLATELET COUNT 68 10^3/uL (130-450); RED BLOOD COUNT 1.76 10^6/uL (4.70-6.10); RED CELL DISTRIBUTION WIDTH 14.1 % (12.0-15.0); WHITE BLOOD COUNT 8.1 x10^3/uL (4.8-10.8)
[2021-06-15 13:32] LABS: HCT - HEMATOCRIT 18.2 % (42.0-52.0); HGB - HEMOGLOBIN 6.2 g/dL (14.0-18.0)
[2021-06-15 13:37] LABS: INR 1.4 (0.8-1.2); PT - PROTHROMBIN TIME 15.5 secs (9.9-12.6)
[2021-06-15 13:45] LABS: ALBUMIN 2.5 g/dL (3.2-5.5); ALBUMIN/GLOBULIN RATIO 0.7 (1.0-2.2); BILIRUBIN,TOTAL 3.3 mg/dL (0.2-1.0); CALCIUM 8.9 mg/dL (8.5-10.3); TOTAL PROTEIN 6.2 g/dL (6.7-8.2)
[2021-06-15] MEDS ORDERED: ALBUMIN 25% 12.5 GM/50 ML VIAL IV STA (13:47)
[2021-06-15 13:48] LABS: CREATININE 8.9 mg/dL (0.6-1.2); POTASSIUM 6.1 mmol/L (3.5-5.0)
[2021-06-15] MEDS ORDERED: FUROSEMIDE 40 MG/4 ML VIAL IVP STA (13:48)
[2021-06-15] MEDS ORDERED: ALBUTEROL NEB 2.5 MG/3 ML INH STA (13:48)
[2021-06-15] MEDS ORDERED: SODIUM POLYSTYRENE SULFONATE 15 GM/60 ML BOTTLE PO STA (13:49)
--- NOTE | 2021-06-15 13:51 | ED Physician Documentation ---
History of Present Illness - Stated complaint Stated Complaint: BLEEDING PORT - Chief complaint Chief Complaint: General - History obtained from History obtained from: Patient - Additonal information Additional information: 55-year-old gentleman with history of alcoholic cirrhosis presents from urgent care with complaints of needing his peritoneal tube drained and weakness. He denies hematemesis or dark or tarry stools. He was in hospice but per his description his prognosis was too good for him to remain in hospice and therefore hospice was revoked. Last drink with it was a month and a half ago or so. Review of Systems Ten Systems: 10 systems reviewed and negative Constitutional: reports: Fatigue. denies: Fever, Chills Cardiac: denies: Chest pain / pressure, Palpitations Respiratory: denies: Dyspnea, Cough PD PAST MEDICAL HISTORY - Past Medical History Cardiovascular: Hypertension Respiratory: None Neuro: Head injury Endocrine/Autoimmune: None GI: Esophageal varices, Ulcers, Cirrhosis : None HEENT: None Psych: None Musculoskeletal: Osteoarthritis Derm: None - Past Surgical History Past Surgical History: Yes General: Colonoscopy, EGD - Present Medications Home Medications: Ambulatory Orders Medication Instructions Recorded Confirmed Albuterol Sulfate [Proair 90 mcg IH Q4HR PRN 06/10/21 06/15/21 Respiclick] Furosemide [Lasix] 20 mg PO DAILY 06/10/21 06/15/21 Lactulose 10 gm PO BID 06/10/21 06/15/21 Pantoprazole [Protonix] 1 tab ORAL DAILY 06/10/21 06/15/21 Spironolactone [Aldactone] 25 mg PO BID 06/10/21 06/15/21 oxyCODONE [Roxicodone] 5 mg PO Q6HR PRN 06/10/21 06/15/21 Propranolol [Inderal] 10 mg PO BID 06/15/21 06/15/21 - Allergies Allergies/Adverse Reactions: Allergies Allergy/AdvReac Type Severity Reaction Status Date / Time Penicillins Allergy Anaphylaxis Verified 06/15/21 12:46 - Social History Does the pt smoke?: Yes Smoking Status: Current every day smoker Does the pt drink ETOH?: Yes Does the pt have substance abuse?: No - Immunizations Immunizations are current?: Yes - POLST Patient has POLST: No PD ED PE NORMAL - Vitals Vital signs reviewed: Yes - General General: Alert and oriented X 3, No acute distress - HEENT HEENT: PERRL, EOMI - Neck Neck: Supple, no meningeal sign, No bony TTP - Cardiac Cardiac: RRR, No murmur - Respiratory Respiratory: No respiratory distress, Clear bilaterally - Abdomen Abdomen: Other (He has ascites, its marked but not tense. There is a drainage tube in the right lower quadrant. Significant ecchymosis of the abdominal wall.) - Back Back: No CVA TTP, No spinal TTP - Derm Derm: Normal color, Warm and dry - Extremities Extremities: Other (Trace pitting pedal edema) - Neuro Neuro: Alert and oriented X 3, Normal speech, Other (No asterixis) - Psych Psych: Normal mood, Normal affect Results - Vitals Vitals: Vital Signs - 24 hr 06/15/21 06/15/21 06/15/21 12:48 14:18 15:18 Temperature 36.5 C Heart Rate 63 61 65 Respiratory 16 9 L 22 Rate Blood Pressure 150/55 H 166/86 H O2 Saturation 100 100 06/15/21 06/15/21 06/15/21 15:24 15:35 15:45 Temperature 36.6 C 36.8 C 36.9 C Heart Rate 62 63 65 Respiratory 12 11 L 14 Rate Blood Pressure 156/86 H 148/94 H 134/66 H O2 Saturation 06/15/21 06/15/21 06/15/21 16:00 18:14 18:20 Temperature 36.7 C 36.6 C Heart Rate 62 68 62 Respiratory 10 L 13 16 Rate Blood Pressure 143/83 H 125/62 144/75 H O2 Saturation 100 100 06/15/21 06/15/21 06/15/21 20:00 21:06 21:25 Temperature 36.8 C 37.1 C 37.0 C Heart Rate 71 65 60 Respiratory 16 12 12 Rate Blood Pressure 138/69 H 148/95 H 140/80 H O2 Saturation 98 06/15/21 06/15/21 06/15/21 21:26 22:00 23:29 Temperature 37.1 C 36.5 C 36.5 C Heart Rate 62 82 63 Respiratory 12 14 14 Rate Blood Pressure 142/82 H 142/83 H 142/79 H O2 Saturation 99 06/16/21 06/16/21 06/16/21 00:00 00:23 00:45 Temperature 36.7 C Heart Rate 60 65 66 Respiratory 14 14 12 Rate Blood Pressure 140/80 H 135/74 H 141/73 H O2 Saturation 96 99 98 06/16/21 06/16/21 06/16/21 02:17 02:29 03:55 Temperature 37.2 C Heart Rate 70 70 63 Respiratory 13 12 12 Rate Blood Pressure 133/76 H 133/76 H 139/77 H O2 Saturation 97 98 100 06/16/21 06/16/21 05:34 06:15 Temperature 37.1 C Heart Rate 64 62 Respiratory 17 13 Rate Blood Pressure 125/64 119/66 O2 Saturation 97 98 Oxygen O2 Source Room air - EKG (time done) 1359 Rate: Rate (enter#) (57) Rhythm: NSR [place]: Normal Intervals: Prolonged AL QRS: Normal Ischemia: Non specific changes (Mildly peaked T waves,) - Labs Labs: Laboratory Tests 06/15/21 06/15/21 06/15/21 13:19 13:19 13:19 WBC 8.1 RBC 1.76 L Hgb 6.2 L* Hct 18.2 L* MCV 103.4 H MCH 35.2 H MCHC 34.1 RDW 14.1 Plt Count 68 L MPV 12.2 H Neut # (Auto) 5.7 Lymph # (Auto) 1.2 L [place] # (Auto) 0.9 Eos # (Auto) 0.2 Baso # (Auto) 0.0 Absolute Nucleated RBC 0.00 Nucleated RBC % 0.0 PT 15.5 H INR 1.4 H Sodium 132 L Potassium 6.1 H* Chloride 103 Carbon Dioxide 18 L Anion Gap 11.0 BUN 93 H* Creatinine 8.9 H* Estimated GFR (MDRD) 6 L Glucose 142 H Lactic Acid Calcium 8.9 Total Bilirubin 3.3 H AST 73 H ALT 28 Alkaline Phosphatase 112 Ammonia Total Protein 6.2 L Albumin 2.5 L Globulin 3.7 Albumin/Globulin Ratio 0.7 L Lipase 66 H Nasal Adenovirus (PCR) Nasal B. parapertussis DNA (PCR) Nasal Coronavir 229E PCR Nasal Coronavir HKU1 PCR Nasal Coronavir NL63 PCR Nasal Coronavir OC43 PCR Nasal Enterovir/Rhinovir PCR Nasal Influenza B PCR Nasal Influenza A PCR Nasal Parainfluen 1 PCR Nasal Parainfluen 2 PCR Nasal Parainfluen 3 PCR Nasal Parainfluen 4 PCR Nasal RSV (PCR) Nasal B.pertussis DNA PCR Nasal C.pneumoniae (PCR) Griffin Human Metapneumo PCR Nasal M.pneumoniae (PCR) Nasal SARS-CoV-2 (PCR) Blood Type Antibody Screen Crossmatch IS Only 06/15/21 06/15/21 06/15/21 13:19 14:00 14:02 WBC RBC Hgb Hct MCV MCH MCHC RDW Plt Count MPV Neut # (Auto) Lymph # (Auto) [place] # (Auto) Eos # (Auto) Baso # (Auto) Absolute Nucleated RBC Nucleated RBC % PT INR Sodium Potassium Chloride Carbon Dioxide Anion Gap BUN Creatinine Estimated GFR (MDRD) Glucose Lactic Acid 2.8 H Calcium Total Bilirubin AST ALT Alkaline Phosphatase Ammonia Total Protein Albumin Globulin Albumin/Globulin Ratio Lipase Nasal Adenovirus (PCR) NOT DETECTED Nasal B. parapertussis DNA (PCR) NOT DETECTED Nasal Coronavir 229E PCR NOT DETECTED Nasal Coronavir HKU1 PCR NOT DETECTED Nasal Coronavir NL63 PCR NOT DETECTED Nasal Coronavir OC43 PCR NOT DETECTED Nasal Enterovir/Rhinovir PCR NOT DETECTED Nasal Influenza B PCR NOT DETECTED Nasal Influenza A PCR NOT DETECTED Nasal Parainfluen 1 PCR NOT DETECTED Nasal Parainfluen 2 PCR NOT DETECTED Nasal Parainfluen 3 PCR NOT DETECTED Nasal Parainfluen 4 PCR NOT DETECTED Nasal RSV (PCR) NOT DETECTED Nasal B.pertussis DNA PCR NOT DETECTED Nasal C.pneumoniae (PCR) NOT DETECTED Griffin Human Metapneumo PCR NOT DETECTED Nasal M.pneumoniae (PCR) NOT DETECTED Nasal SARS-CoV-2 (PCR) NOT DETECTED Blood Type O POSITIVE Antibody Screen NEGATIVE Crossmatch IS Only See Detail 06/15/21 06/15/21 06/15/21 14:41 16:14 18:50 WBC RBC Hgb 6.8 L* Hct 20.3 L MCV MCH MCHC RDW Plt Count MPV Neut # (Auto) Lymph # (Auto) [place] # (Auto) Eos # (Auto) Baso # (Auto) Absolute Nucleated RBC Nucleated RBC % PT INR Sodium 131 L Potassium 5.9 H Chloride 101 Carbon Dioxide 18 L Anion Gap 12.0 BUN 98 H* Creatinine 8.9 H* Estimated GFR (MDRD) 6 L Glucose 148 H Lactic Acid Calcium 8.9 Total Bilirubin AST ALT Alkaline Phosphatase Ammonia 97.1 H* Total Protein Albumin Globulin Albumin/Globulin Ratio Lipase Nasal Adenovirus (PCR) Nasal B. parapertussis DNA (PCR) Nasal Coronavir 229E PCR Nasal Coronavir HKU1 PCR Nasal Coronavir NL63 PCR Nasal Coronavir OC43 PCR Nasal Enterovir/Rhinovir PCR Nasal Influenza B PCR Nasal Influenza A PCR Nasal Parainfluen 1 PCR Nasal Parainfluen 2 PCR Nasal Parainfluen 3 PCR Nasal Parainfluen 4 PCR Nasal RSV (PCR) Nasal B.pertussis DNA PCR Nasal C.pneumoniae (PCR) Griffin Human Metapneumo PCR Nasal M.pneumoniae (PCR) Nasal SARS-CoV-2 (PCR) Blood Type Antibody Screen Crossmatch IS Only 06/15/21 06/15/21 06/15/21 18:50 23:41 23:41 WBC RBC Hgb 7.4 L Hct 21.6 L MCV MCH MCHC RDW Plt Count MPV Neut # (Auto) Lymph # (Auto) [place] # (Auto) Eos # (Auto) Baso # (Auto) Absolute Nucleated RBC Nucleated RBC % PT INR Sodium 131 L Potassium 5.5 H 5.1 H Chloride 101 Carbon Dioxide 20 L Anion Gap 10.0 BUN 94 H* Creatinine 8.6 H* Estimated GFR (MDRD) 6 L Glucose 140 H Lactic Acid Calcium 8.2 L Total Bilirubin AST ALT Alkaline Phosphatase Ammonia Total Protein Albumin Globulin Albumin/Globulin Ratio Lipase Nasal Adenovirus (PCR) Nasal B. parapertussis DNA (PCR) Nasal Coronavir 229E PCR Nasal Coronavir HKU1 PCR Nasal Coronavir NL63 PCR Nasal Coronavir OC43 PCR Nasal Enterovir/Rhinovir PCR Nasal Influenza B PCR Nasal Influenza A PCR Nasal Parainfluen 1 PCR Nasal Parainfluen 2 PCR Nasal Parainfluen 3 PCR Nasal Parainfluen 4 PCR Nasal RSV (PCR) Nasal B.pertussis DNA PCR Nasal C.pneumoniae (PCR) Griffin Human Metapneumo PCR Nasal M.pneumoniae (PCR) Nasal SARS-CoV-2 (PCR) Blood Type Antibody Screen Crossmatch IS Only PD MEDICAL DECISION MAKING - ED course ED course: 55-year-old gentleman with alcoholic cirrhosis, he states last drink was about a month and a half ago with complaints of needing his belly drained. He has a nontender exam and ascites but it is not tense. Work-up here notes that he is significantly anemic which does not look superacute since the last hemoglobin was in the mid sevens and worsening renal failure noting his last creatinine was about a month ago in the mid fours. He has hepatorenal syndrome now unfortunately with significant hyperkalemia and mildly peaked T waves on EKG but no QRS widening. He was administered blood, albumin, Lasix, Kayexalate, albuterol. On recheck of his potassium it was trending down at 5.9. A search was undertaken to find an ICU bed for him somewhere with nephrology and GI consultative abilities. We called [facility] and they did not have any beds. I did speak with the shook splicer there who agreed with transfer but again could not accept without a bed. Search was widened to include other [facility] hospitals. Unfortunately, it seems all tertiary facilities in the area are at capacity and he is boarding in the ED until he can be transferred somewhere with GI and nephrology. - Critical Care Time(min): 45 Time Includes: Direct patient care, Review records, Reassess patient, Document care, Coordinate care, Medical consult Data interpretation: Labs, Pulse ox Procedures excluded from critical care time: EKG Departure - Departure Disposition: 02 Transfer Acute Care Hosp Clinical Impression: Pancytopenia, Cirrhosis, Hepatorenal syndrome, Renal failure, Hyperkalemia Condition: Critical
[2021-06-15 15:13] LABS: B. PARAPERTUSSIS- RESP PCR PAN NOT DETECTED; B. PERTUSSIS- RESP PCR PANEL NOT DETECTED; C. PNEUMONIAE- RESP PCR PANEL NOT DETECTED; CORONAVIRUS 229E-RESP PCR NOT DETECTED; CORONAVIRUS HKU1-RESP PCR NOT DETECTED; CORONAVIRUS NL63-RESP PCR NOT DETECTED; CORONAVIRUS OC43-RESP PCR NOT DETECTED; HUMAN METAPNEUMOVIRUS NOT DETECTED; INFLUENZA A- RESP PCR PANEL NOT DETECTED; INFLUENZA B - RESP PCR PANEL NOT DETECTED; M. PNEUMONIAE- RESP PCR PANEL NOT DETECTED; PARAINFLUENZA VIRUS 1 NOT DETECTED; PARAINFLUENZA VIRUS 2 NOT DETECTED; PARAINFLUENZA VIRUS 3 NOT DETECTED; PARAINFLUENZA VIRUS 4 NOT DETECTED; RHINOVIRUS/ENTEROVIRUS NOT DETECTED; RSV- RESP PCR PANEL NOT DETECTED; SARS-CoV-2 -RESP PCR PANEL NOT DETECTED
[2021-06-15] MEDS ORDERED: LACTULOSE 10 GM /15 ML UDC PO STA (15:14)
[2021-06-15 16:37] LABS: CALCIUM 8.9 mg/dL (8.5-10.3); POTASSIUM 5.9 mmol/L (3.5-5.0)
[2021-06-15 16:46] LABS: CREATININE 8.9 mg/dL (0.6-1.2)
[2021-06-15] MEDS ORDERED: oxyCODONE 5 MG TABLET PO STA (17:35)
[2021-06-15] MEDS ORDERED: PROPRANOLOL 10 MG TABLET PO STA (17:36)
[2021-06-15] MEDS ORDERED: SODIUM BICARBONATE 150 MEQ in DEXTROSE 5% 1,000 ML IV STA (18:11)
[2021-06-15 19:00] LABS: HCT - HEMATOCRIT 20.3 % (42.0-52.0)
[2021-06-15] MEDS ORDERED: ONDANSETRON 4 MG/2 ML VIAL IVP STA (19:01)
[2021-06-15 19:02] LABS: HGB - HEMOGLOBIN 6.8 g/dL (14.0-18.0)
--- NOTE | 2021-06-15 19:50 | ED Physician Documentation ---
ED Addendum - Addendum Addendum: 06/15/21 19:47I just talked with Dr. Ross who is on-call for hematology at . I reviewed the findings and symptoms and she reviewed their chart notes available. At this point due to their bed status, they are unable to accept anyone to hepatology except for extreme liver failure or liver transplant patients. He does not meet criteria for that. The transfer center suggested if we have worsening or persistent difficulties with elevated potassium and creatinine we could try calling back to discuss with their medicine service but she does not feel it would meet their override criteria for hospital hospital transfer. Consider the state transfer coordination service. To call back [facility] if persistent difficulties and persisting elevated potassium and creatinine.
[2021-06-15 23:52] LABS: HCT - HEMATOCRIT 21.6 % (42.0-52.0); HGB - HEMOGLOBIN 7.4 g/dL (14.0-18.0)
[2021-06-15 23:57] LABS: CALCIUM 8.2 mg/dL (8.5-10.3); POTASSIUM 5.1 mmol/L (3.5-5.0)
[2021-06-16] LABS: CREATININE 8.6 mg/dL (0.6-1.2)
[2021-06-16] MEDS ORDERED: oxyCODONE 5 MG TABLET PO STA (03:54)
[2021-06-16 07:52] LABS: ALBUMIN 2.3 g/dL (3.2-5.5); ALBUMIN/GLOBULIN RATIO 0.7 (1.0-2.2); BASOPHILS % (AUTO) 0.1 %; BILIRUBIN,TOTAL 5.6 mg/dL (0.2-1.0); CALCIUM 8.6 mg/dL (8.5-10.3); EOSINOPHILS # (AUTO) 0.1 10^3/uL (0.0-0.7); HCT - HEMATOCRIT 21.8 % (42.0-52.0); HGB - HEMOGLOBIN 7.8 g/dL (14.0-18.0); LYMPHOCYTES # (AUTO) 1.5 10^3/uL (1.5-3.5); LYMPHOCYTES % (AUTO) 21.5 %; MEAN CORPUSCULAR HEMOGLOBIN 33.9 pg (27.0-31.0); MEAN CORPUSCULAR HGB CONC 35.8 g/dL (32.0-36.0); MEAN CORPUSCULAR VOLUME 94.8 fL (80.0-94.0); MONOCYTES # (AUTO) 1.1 10^3/uL (0.0-1.0); MONOCYTES % (AUTO) 14.9 %; NEUTROPHILS # (AUTO) 4.4 10^3/uL (1.5-6.6); NEUTROPHILS % (AUTO) 60.9 %; PLT - PLATELET COUNT 43 10^3/uL (130-450); RED CELL DISTRIBUTION WIDTH 18.5 % (12.0-15.0); TOTAL PROTEIN 5.4 g/dL (6.7-8.2); WHITE BLOOD COUNT 7.1 x10^3/uL (4.8-10.8)
[2021-06-16 07:53] LABS: CREATININE 8.4 mg/dL (0.6-1.2)
[2021-06-16] MEDS ORDERED: oxyCODONE 5 MG TABLET PO PRN (07:55)
[2021-06-16] MEDS ORDERED: PANTOPRAZOLE 40 MG TABLET PO SCH (09:00)
[2021-06-16] MEDS ORDERED: FUROSEMIDE 20 MG TABLET PO SCH (09:00)
[2021-06-16] MEDS ORDERED: LACTULOSE 10 GM /15 ML UDC PO SCH (09:00)
[2021-06-16] MEDS ORDERED: PROPRANOLOL 10 MG TABLET PO SCH (09:00)
[2021-06-16 10:11] LABS: BF CLARITY BLOODY; BF COLOR BLOODY; BF SOURCE PERITONEAL; EOSINOPHILS %,BODY FLUID 1 %; LYMPHOCYTES %,BODY FLUID 37 %; MONOCYTES %,BODY FLUID 18 %; NEUTROPHILS %, BF 44 %
[2021-06-16] MEDS ORDERED: NICOTINE 21 MG PATCH TOP STA (11:49)
[2021-06-16 13:24] VITALS: BP 145/88
[2021-06-16] MEDS ORDERED: ONDANSETRON 4 MG/2 ML VIAL IVP PRN (13:44)
--- NOTE | 2021-06-16 14:00 | ED Physician Documentation ---
ED Addendum - Addendum Addendum: 06/16/21 13:57 55-year-old male with a history of cirrhosis with complications including ascites esophageal varices with bleeding and now renal failure is coming to the emergency department with renal failure and anemia. stool was guaiac negative and the patient was transferred fused 2 units of red blood cells he was found to be hyperkalemic on arrival and required treatment for hyperkalemia which improved his hyperkalemia. his kidney function did not improve. All beds were full at the time of evaluation and the patient remained in the emergency department overnight. a bed has become available at [facility] in [place]. The hospitaList Dr. Royal has accepted the patient in transfer. She request we discontinue any furosemide.
[2021-06-16] MEDS ORDERED: ONDANSETRON 4 MG/2 ML VIAL IVP STA (14:38)
== END 2021-06-16 15:47 | disposition short-term general hospital (02) ==
LOC: ED 12:44
DX: D61.818 Other pancytopenia (principal); K76.7 Hepatorenal syndrome; K70.31 Alcoholic cirrhosis of liver with ascites; I12.0 Hypertensive chronic kidney disease with stage 5 chronic kidney disease or end stage renal disease; N18.6 End stage renal disease; E87.5 Hyperkalemia; D63.1 Anemia in chronic kidney disease; F17.200 Nicotine dependence, unspecified, uncomplicated; Z20.822 Contact with and (suspected) exposure to COVID-19
CPT/HCPCS: 0202U; 36415; 36430; 80048; 80053; 82140; 82272; 83605; 83690; 84132; 85014; 85018; 85025; 85610; 86850; 86900; 86901; 86920; 87070; 87205; 89051; 93005; 94640; 96365; 96366; 96367; 96375; 96376; 99291; A9270; P9016; P9040; P9047

== ENCOUNTER 2021-07-07 06:21 | Outpatient (CLI) | payer MEDICAID | END 2021-07-07 06:22 | disposition EMS.NT | LOC: EMS 06:21 | DX: R53.1 Weakness (principal); G47.00 Insomnia, unspecified; R00.0 Tachycardia, unspecified ==

== ENCOUNTER 2021-07-14 12:37 | Outpatient (CLI) | payer MEDICAID | END 2021-07-14 12:38 | disposition short-term general hospital (02) | LOC: EMS 12:37 | DX: R40.4 Transient alteration of awareness (principal) | CPT/HCPCS: A0425; A0429; A0999 ==